=== PATIENT | male | born 1975 | race Two or more races ===

== ENCOUNTER 2023-02-25 10:33 | Inpatient (IN) | payer OTHER, SELFPAY ==
[2023-02-25] VITALS (9 sets, daily range): BP systolic 137–156; BP diastolic 78–96; PULSE 64–87; RESP 15–24; TEMP 36.3–36.4; O2SAT 94–97; BMI 27.4
--- NOTE | ~2023-02-25 | CT_ITS ---
EXAMINATION: CT ABDOMEN AND PELVIS WITH CONTRAST CLINICAL INFORMATION: Abdominal pain. COMPARISON: None available. TECHNIQUE: Multidetector volumetric images were obtained from the superior aspect of the liver through the pubic symphysis following administration 85 mL of Omnipaque 350 intravenous contrast. Sagittal and coronal reformatted images were obtained on the technologist's workstation. Oral contrast: No This CT examination was performed using dose optimization techniques as appropriate, variously including the following: *Automated exposure control *Adjustment of mA and/or kV according to patient size (this includes techniques or standardized protocols for targeted exams where dose is matched to indication/reason for exam; i.e. extremities or head) *Use of iterative reconstruction technique DLP: 468 mGy-cm FINDINGS: LUNG BASES: The visualized lung bases are unremarkable. LIVER, GALLBLADDER, AND BILIARY TREE: The liver is decreased in attenuation. No biliary ductal dilatation is present. The gallbladder is unremarkable with no evidence of radiopaque gallstones, gallbladder wall thickening, or obvious pericholecystic inflammatory changes. PANCREAS: Peripancreatic stranding. No focal fluid collection. No ductal dilatation. SPLEEN: Not enlarged. ADRENAL GLANDS: Unremarkable. KIDNEYS AND URETERS: The kidneys are normal in size, shape, and attenuation. No hydronephrosis, hydroureter, or calculi seen. No perinephric stranding. BLADDER: Unremarkable. GASTROINTESTINAL TRACT: The small and large bowel are unremarkable. The appendix is unremarkable. ABDOMINAL WALL: No significant hernia is appreciated. LYMPH NODES: No bulky lymphadenopathy. VASCULAR: Normal caliber abdominal aorta. PELVIC VISCERA: Unremarkable. OSSEOUS STRUCTURES: No destructive bone lesions. CT/CT abdomen pelvis w IV con IMPRESSION: Peripancreatic stranding. This most likely represents acute pancreatitis. Advise correlation with pancreatic enzymes. Hepatic steatosis.
--- NOTE | 2023-02-25 11:14 | ED_ITS ---
HPI - General Adult General Chief complaint: Abdominal Pain Stated complaint: Upper abd pain Time Seen by Provider: 02/25/23 14:17 Source: patient Mode of arrival: ambulatory Limitations: language barrier (Welsh speaking only, coffee host used) History of Present Illness HPI narrative: 47-year-old male who presents emergency department for evaluation of epigastric pain. Patient states the pain started yesterday around 15:00 hours was at work. Patient points to his epigastric area when asked to localize the pain, the pain is a constant, sharp pain which is 8/10 at its worst. This is 1st episode of this type of pain. Patient has had nausea and he states that he vomits a foul tasting yellow fluid several times specially when he is brushing his teeth. He did not take any pain medications but his did give him crushed of cartilage which did not relieve his pain. He denied fever, chills, cough, shortness of breath, dyspnea on exertion, diarrhea, bloody stools, black stools. He states he occasionally when he eats hot chili peppers he does get blood in his stool but this is not happened recently. Patient drinks 6-7 beers per day. NB: The patient's serum is severely lipemic and our lab is unable to process is CMP and lipase specimen was sent to [facility] for testing. Related Data Allergies Allergy/AdvReac Type Severity Reaction Status Date / Time No Known Allergies Allergy Verified 02/25/23 11:14 Review of Systems 2 Review of Systems: Yes all other systems are reviewed and are negative [facility] Past Medical History [facility] Narrative: Past medical history: None. Surgical history: None. Social history: Patient smokes cigarettes occasionally. He drinks 6-7 beers per day, he denies drug use. Social History Social History Alcohol intake: current Alcohol intake frequency: 3 or more drinks per day Alcohol type: beer Smoked in Last 30 Days: Yes Use of substances other than those prescribed or required for medical reasons: No Advance Directives: No Advance Directives Information Provided: Yes Physical Exam ED Vital Signs: Vital Signs - 24 hr 02/25/23 11:14 02/25/23 14:49 02/25/23 15:12 Temperature 97.4 F Pulse Rate 82 83 87 Respiratory Rate 18 18 16 Blood Pressure 137/86 147/94 H 152/96 H Pulse Oximetry 94 95 Oxygen Delivery Method Room Air Room Air Room Air 02/25/23 17:40 Temperature Pulse Rate 64 Respiratory Rate 15 Blood Pressure 147/88 H Pulse Oximetry 96 Oxygen Delivery Method Room Air BMI result Body Mass Index 27.4 Vital signs were normal Exam: General: Awake, alert in no distress Head: Normocephalic, atraumatic EENT: PERRL, Lids normal, sclera normal, conjunctiva normal, nose normal , ears normal, throat without erythema or exudates Neck: Supple, no adenopathy, no trachea midline or C-spine tenderness Lung: breath sounds symmetric, no wheezing, rales or rhonchi Chest: symmetric movement, nontender Heart: regular rate and rhythm, normal S1, S2 no murmurs or rubs Abdomen: soft, moderate epigastric tenderness, nondistended, normal bowel sounds Back: no vertebral tenderness, no CVAT Extremities: no deformities, moves all extremities symmetrically Neuro: Awake, alert, oriented, normal speech, moves all extremities symmetrically Psych: Pleasant, cooperative Course Course Course Narrative: RME performed by Vanita Rubalcava PA-C. Patient is a 47 year old assigned male at presenting to the emergency department with abdominal pain. Labs and swabs ordered. Patient placed back in the waiting room pending room availability and results. Medications Administered Discontinued Medications Generic Name Dose Route Start Last Admin Trade Name Freq PRN Reason Stop Dose Admin Famotidine 20 mg 02/25/23 14:45 02/25/23 14:56 Famotidine/Pf 20 Mg/2 Ml Vial IVPUSH 02/25/23 14:46 20 mg ONCE ONE Administration Sodium Chloride 1,000 mls @ 999 mls/hr 02/25/23 14:45 02/25/23 14:56 Ns IV 02/25/23 15:45 999 mls/hr .Q1H1M STA Administration Iohexol 100 ml 02/25/23 16:46 02/25/23 16:46 Iohexol 350 Mg/Ml 100 Ml Infus..Btl IV 02/25/23 16:47 85 ml ONCE ONE Administration Ketorolac Tromethamine 15 mg 02/25/23 14:45 02/25/23 14:56 Ketorolac Tromethamine 15 Mg/Ml Vial IVPUSH 02/25/23 14:46 15 mg ONCE STA Administration Ondansetron HCl 4 mg 02/25/23 14:45 02/25/23 14:56 Ondansetron Hcl 4 Mg/2 Ml Vial IVPUSH 02/25/23 14:46 4 mg ONCE ONE Administration Medical Decision Making Medical Decision Making [facility] Narrative: 47-year-old male who presents emergency department for evaluation of constant, sharp epigastric pain since 15:00 hours yesterday associated with nausea and vomiting. Patient's pain was 8/10, this is the patient's 1st episode. Patient does drink 6-7 beers per day. Patient's serum was lipemic and was not able to be tests at our lab-specimen was sent to [facility] for testing. Following evaluation was ordered: CBC, CMP, magnesium, urinalysis, lipase, lipid panel, CT scan abdomen pelvis with IV contrast. Patient was treated with Toradol 15 mg IV, Zofran 4 mg IV and Pepcid 20 mg IV. Patient was also given normal saline IV x1 L. 17:21 My interpretation patient's laboratory evaluation is as follows: CBC was normal except for low platelet count of a [id number]. Troponin was below detectable limits. The triglyceride was greater than 5680, chloride was greater than 1022, HDL was low at 19. The patient's CMP and lipase are pending CT scan of the abdomen pelvis with IV contrast is consistent acute pancreatitis most likely caused by the high triglycerides 17:40 I did discuss admission with the covering office manager receptionist, Dr. Tony who did accept the patient into the intensive care unit. At this time, we will hold off on the insulin drip until we can get the patient's comprehensive metabolic panel-in particular the patient's potassium from [facility]. Dr. Tony recommending giving the patient lactated Ringer's at 200 mL/hr and checking a VBG. Differential Diagnosis Differential Diagnoses: The differential diagnosis associated with the presentation includes Differential diagnosis includes but is not limited to gastritis, pancreatitis, biliary disease, peptic ulcer disease, electrolyte abnormality, anemia Admission/Observation Consideration of admission/observation: Escalation of care including admission/observation considered Lab Data [facility] Lab Attestation statement: I reviewed the patient's lab results. Please see discussion above 02/25/23 11:33 02/25/23 11:33 Labs: Lab Results 02/25/23 02/25/23 02/25/23 Range/Units 11:33 15:15 17:42 WBC 7.3 (4.8-10.8) X10*3/uL RBC 4.88 (4.60-5.80) X10*6/uL Hgb 14.9 (14.0-18.0) g/dl Hct 44.3 (42.0-52.0) % MCV 90.8 (80.0-98.0) fL MCH 30.5 (27.0-33.0) pg MCHC 33.6 (31.0-36.0) g/dl RDW 13.2 (11.0-16.0) % Plt Count 143 L (160-400) X10*3/uL MPV 10.4 (9.4-12.4) fL Immature Gran % (Auto) 0.5 H (0.0-0.4) % Neut % (Auto) 71.6 (45-73) % Lymph % (Auto) 19.7 L (20-40) % [place] % (Auto) 7.1 (2-11) % Eos % (Auto) 0.4 (0-4) % Baso % (Auto) 0.7 (0-2) % Lymph # (Auto) 1.4 (1.2-4.9) X10*3/uL [place] # (Auto) 0.5 (0.1-1.2) X10*3/uL Eos # (Auto) 0.0 (0.0-0.4) X10*3/uL Baso # (Auto) 0.1 (0.0-0.2) X10*3/uL Abs Immat Gran (auto) 0.04 H (0.00-0.03) X10*3/uL Absolute Neuts (auto) 5.2 (2.0-8.3) x10*3/uL Absolute Nucleated RBC 0.000 (0.0-0.012) X10*3/uL Nucleated RBC % (auto) 0.0 (0.0-0.2) /100WBC Smear Tech's Comments VERIFIED PT TNP INR TNP APTT TNP Troponin I High Sens < 2.7 (<3.5-35.0) ng/L Triglycerides > 5680 H Cancelled (<150) mg/dL Cholesterol 1022 H Cancelled (<200) mg/dL LDL Cholesterol, Calc TNP Cancelled HDL Cholesterol 19 L Cancelled (>40) mg/dL Urine Color Yellow Urine Appearance Clear Urine pH 7.0 (5.0-9.0) Ur Specific [place] >= 1.030 H (1.005-1.025) Urine Protein Negative (Neg-Trace) mg/dL Urine Glucose (UA) Negative (Negative) mg/dL Urine Ketones Negative (Negative) mg/dL Urine Blood Negative (Negative) Urine Nitrite Negative (Negative) Ur Leukocyte Esterase Negative (Negative) Independent Interpretation I performed an independent interpretation of an: EKG Interpretation: My independent interpretation patient's 12 EKG is as follows: Normal sinus rhythm with a rate of 75, normal [place], QRS and QTC interval, no ST segment elevation, no ST segment depression, no significant T-wave abnormalities, no PACs, no PVCs Radiology Impression Discussion of test interpretation with radiology: I have reviewed the radiologist's reading. Radiologist Impression: CT abdomen pelvis w IV con IMPRESSION: Peripancreatic stranding. This most likely represents acute pancreatitis. Advise correlation with pancreatic enzymes. Hepatic steatosis. Dictated By: Gifty Alaniz MD Chronic Conditions Patient?s care impacted by: Other (Alcohol use disorder) Critical Care Time Critical Care Time Critical Care Time: Yes Total Critical Care Time: 35 Attestation: Critical Care: The patient was critically ill with a high probability of imminent or life threatening deterioration. I spent greater than 30 minutes of discontinuous time evaluating the patient,delivering critical care at the bedside, discussing and evaluating pertinent data with consultants. Critical care time does not include time spent performing separately billable procedures or teaching. Total time spent performing critical care was 45 minutes. Discharge Plan Discharge Clinical Impression: Acute pancreatitis, Alcohol use disorder, Hyperlipidemia, Hypercholesterolemia
--- NOTE | 2023-02-25 11:16 | ECG_ITS ---
Test Reason : epigastric pain Blood Pressure : / mmHG Vent. Rate : 075 BPM Atrial Rate : 075 BPM P-R Int : 174 ms QRS Dur : 096 ms QT Int : 408 ms P-R-T Axes : 038 -45 007 degrees QTc Int : 455 ms Normal sinus rhythm Left anterior fascicular block Abnormal ECG No previous ECGs available Referred By: Vanita Rubalcava Electronically Signed By:DAMIAN VILLALTA MD
[2023-02-25 11:44] LABS: Basophils Absolute Auto 0.1 X10*3/uL (0.0-0.2); Basophils Percent Auto 0.7 % (0-2); Eosinophils Percent Auto 0.4 % (0-4); Hematocrit 44.3 % (42.0-52.0); Imm Gran Abs Auto 0.04 X10*3/uL (0.00-0.03); Imm Gran Pct Auto 0.5 % (0.0-0.4); Lymphocytes Absolute Auto 1.4 X10*3/uL (1.2-4.9); Lymphocytes Percent Auto 19.7 % (20-40); MANUAL DIFF FLAG SCAN; Mean Corpuscular Volume 90.8 fL (80.0-98.0); Mean Platelet Volume 10.4 fL (9.4-12.4); Monocytes Absolute Auto 0.5 X10*3/uL (0.1-1.2); Monocytes Percent Auto 7.1 % (2-11); Neutrophils Absolute Auto 5.2 x10*3/uL (2.0-8.3); Neutrophils Percent Auto 71.6 % (45-73); Platelet Count 143 X10*3/uL (160-400); Red Blood Count 4.88 X10*6/uL (4.60-5.80); Red Cell Distribution Width 13.2 % (11.0-16.0); SCAN SMEAR FLAG 1; White Blood Count 7.3 X10*3/uL (4.8-10.8)
[2023-02-25 11:51] LABS: Hemoglobin 14.9 g/dl (14.0-18.0)
[2023-02-25 11:52] LABS: Mean Corpuscular HGB Conc 33.6 g/dl (31.0-36.0); Mean Corpuscular Hemoglobin 30.5 pg (27.0-33.0)
[2023-02-25 12:08] LABS: Troponin-I High Sensitivity < 2.7 ng/L (<3.5-35.0)
[2023-02-25 12:25] LABS: SLIDE REVIEW VERIFIED
[2023-02-25] MEDS: 0.9 % Sodium Chloride 1,000 ML 999 ML IV (14:56)
[2023-02-25] MEDS: Famotidine/PF 20 MG/2 ML VIAL IVPUSH (14:56)
[2023-02-25] MEDS: Ketorolac Tromethamine 15 MG/ML VIAL IVPUSH (14:56)
[2023-02-25] MEDS: ondansetron HCL 4 MG/2 ML VIAL IVPUSH (14:56)
[2023-02-25 15:01] LABS: Cholesterol 1022 mg/dL (<200); Triglycerides > 5680 mg/dL (<150)
[2023-02-25 15:02] LABS: HDL Cholesterol 19 mg/dL (>40)
--- NOTE | 2023-02-25 15:13 | PC.NURSE ---
report taken from previous rn pt resting conformably in semi fowlers. pt is caox4 skin wpod, resps nonlabored. pt is in nsr in lead 2. pt just medicated for pain. Pt is awaiting bmp results for ct with contrast. abd noted to be soft and nontender with no discoloration or distention. will reeval pain and continue to monitor. call bailey withjin reach.
[2023-02-25] MEDS: iohexoL 350 MG/ML 100 ML INFUS..BTL IV (16:46)
[2023-02-25 17:50] LABS: Appearance Urine Clear; Color Urine Yellow; Glucose Urine UA Negative (Negative); Leukocyte Esterase Urine Negative (Negative); Nitrite Urine Negative (Negative); Specific Gravity - Urine >= 1.030 (1.005-1.025); Urine Blood Negative (Negative); Urine Ketones Negative (Negative); Urine Protein Negative (Neg-Trace)
--- NOTE | 2023-02-25 18:18 | PHA.MEDREC ---
Pharmacy Consult ? Medication Reconciliation Pharmacy has completed the medication reconciliation. Patient only takes otc medications. Marcia Hancock, GueritaD
[2023-02-25 18:26] LABS: VBG Base Excess 6.1 mmol/L; VBG HCO3 27 mmol/L (22-26); VBG pCO2 30 mmHg; VBG pH 7.56 (7.32-7.43); VBG pO2 52 mmHg
[2023-02-25 18:28] LABS: Venous Blood Gas Refer to POC result
[2023-02-25 18:57] LABS: Carbon Dioxide 18 mmol/L (22-29); Chloride 99 mmol/L (96-108); Potassium 3.7 mmol/L (3.3-5.1); Sodium 133 mmol/L (135-145)
[2023-02-25 18:58] LABS: Anion Gap 20 (12-20); Lipase 64 U/L (8-78)
[2023-02-25 19:21] LABS: Alanine Aminotransferase 117 U/L (0-40); Albumin Level 3.1 g/dL (3.5-5.0); Alkaline Phosphatase 169 U/L (39-117); Aspartate Amino Transferase 236 U/L (5-37); Bilirubin Total 1.3 mg/dL (0.0-1.0); Blood Urea Nitrogen 8 mg/dL (9-16); Calcium 8.2 mg/dL (8.4-10.2); Estimated Glomerular Filt Rate > 60; Glucose Random 94 mg/dL (60-115); Magnesium 1.7 mg/dL (1.6-2.6); Total Protein 8.7 g/dL (6.5-8.0)
[2023-02-25 20:08] LABS: Glucose, Whole Blood 100 mg/dL (60-115)
--- NOTE | 2023-02-25 20:12 | PC.NURSE ---
RN took report on this patient at change of shift; pt to be going to ICU [id number]. this RN and previous RN spoke to ICU nurse for rpt. pt labs had to be sent out to [facility]. per note from provider and per rpt from RN insulin was not to be hung until those lab results returned. pt is resting comfortable in stretcher. a/o x4. no apparent distress. denies any complaints at this time. resps are even and unlabored. normal sinus rhythm on the monitor. of note there were IT issues w/ this patient not showing up on the tracker, injection molding supervisor, registration, and meteorologist in charge all aware. these issues started at approx 1800.
--- NOTE | 2023-02-25 20:14 | PM.CCHP ---
History of Present Illness Date of Service: 02/25/23 Attending physician on admission: Coyr Tony Chief Complaint: Epigastric Patient is a 47-year-old Citizen Of [place]-speaking male with a past medical history of ETOH abuse ( admits to drinking 6-7 beers a day ) who presented to the emergency room duration with epigastric pain.? Patient reports x1 day of localize gastric pain, nausea? and vomiting ? yellow fluid?.? He denied fever, chills, cough, shortness of breath, dyspnea on exertion, diarrhea, bloody stools, black stools.? He states he occasionally when he eats hot chili peppers he does get blood in his stool but this is not happened recently. ? On arrival to the emergency room vital signs stable,? ? lab work was delay a required to be sent out to another facility for reading due to lipedemic blood.? By laboratory data was significant for? triglycerides greater than 5680,? cholesterol 1022.? CT of the abdomen? senior sales assistant with acute pancreatitis.? ?Patient being admitted to ICU ? for management of acute pancreatitis with hypertriglyceridemia? requiring insulin drip Review of Systems Review of Systems: as HPI all other symptoms reviewed and are negative [facility] Social History Social History Housing: House Alcohol intake: current Alcohol intake frequency: 3 or more drinks per day Alcohol type: beer Patient Tobacco Use Status: Current someday Tobacco user Tobacco use type: Cigarette Smoked in Last 30 Days: Yes Patient Interested in Nicotine Replacement: No Use of substances other than those prescribed or required for medical reasons: No Currently Displaying Signs/Symptoms of Drug Intoxication Withdrawal: No Advance Directives: No Advance Directives Information Provided: Yes Do you have thoughts of harming others: None Do you have a plan to hurt others: No Plan Recently lost weight without trying: No Nutrition Risks: No Nutritional Risk Poor oral hygiene: No Meds Allergies Allergy/AdvReac Type Severity Reaction Status Date / Time No Known Allergies Allergy Verified 02/25/23 11:14 Active Medications: Current Medications Fentanyl (Fentanyl Citrate/Pf 100 Mcg/2 Ml Vial) 25 mcg IVPUSH Q30M PRN; Protocol PRN Reason: Pain, Severe (Pain Scale 7-10) Heparin Sodium (Porcine) (Heparin Sodium,Porcine 5,000 Unit/Ml Vial) 5,000 unit SUBCUT TID YUAN Dextrose/Lactated Ringer's (D5lr) 1,000 mls @ 200 mls/hr IVCONT .Q5H YUAN Insulin Human Regular (Myxredlin) 100 unit in 100 mls @ 0 mls/hr IVCONT .Q0M YUAN; Protocol Potassium Chloride (Potassium Chloride/H20) 10 meq in 100 mls @ 100 mls/hr IV Q1H YUAN Stop: 02/26/23 00:14 Ondansetron HCl (Ondansetron Hcl 4 Mg/2 Ml Vial) 4 mg IVPUSH Q6H PRN PRN Reason: Nausea and Vomiting Home Medications Medication Instructions Recorded Confirmed Last Taken Type cyanocobalamin (vitamin B-12) 1,000 mcg PO DAILY 02/25/23 02/25/23 Unknown History 1,000 mcg tablet ibuprofen 200 mg tablet (Advil) 400 mg PO Q6H PRN Pain (Scale 02/25/23 02/25/23 Unknown History Score 1-3) vitamin A 3,000 mcg (10,000 unit) 3,000 mcg PO DAILY 02/25/23 02/25/23 Unknown History capsule Physical Exam Vital Signs: Vital Signs: Last Vital Signs Temp 97.6 F 02/25/23 20:00 Pulse 69 02/25/23 20:00 Resp 18 02/25/23 20:00 BP 150/94 H 02/25/23 20:00 Pulse Ox 95 02/25/23 20:00 O2 Del Method Room Air 02/25/23 20:00 BMI result Body Mass Index 27.4 ?General:? Alert oriented x3 no acute distress.? Speaking full sentences.? Following all commands. ?HEENT:? Head is normocephalic, atraumatic, pupils equal round reactive to light accommodation bilaterally.? Extraocular movements appear intact.? Buccal mucosa is dry, Neck is supple without lymphadenopathy. ?Cardiac:? Clear S1-S2, no murmurs rubs or gallops. ?Pulmonary:? Clear to auscultation, no wheezes, rales or rhonchi. ?Abdomen:? ?Abdomen soft, tender in epigastric region, non-distended. Normal bowel sounds. No pulsatile mass. No hepatosplenomegaly. ?Musculoskeletal:? Moving all 4 extremities upon request a major joints, there is no crepitus or tenderness.? The strength is 5/5 bilaterally and throughout all 4 extremities.? Gait not assessed at this point. ?Neurologic:? cranial nerves 2-12 are grossly intact.? No focal deficits noted.Motor strength as above.?? ?Skin:? Intact, no lesions, edema, erythema, clubbing or cyanosis.? No ulcers. Vascular:? 2+ pulses upper and lower extremities distally.? Results Labs 02/26/23 05:36 02/26/23 05:36 Labs: Laboratory Results - last 24 hr 02/25/23 02/25/23 02/25/23 11:33 15:15 17:42 MCV 90.8 MCH 30.5 MCHC 33.6 RDW 13.2 Plt Count 143 L MPV 10.4 Immature Gran % (Auto) 0.5 H Neut % (Auto) 71.6 Lymph % (Auto) 19.7 L [place] % (Auto) 7.1 Eos % (Auto) 0.4 Baso % (Auto) 0.7 Lymph # (Auto) 1.4 [place] # (Auto) 0.5 Eos # (Auto) 0.0 Baso # (Auto) 0.1 Abs Immat Gran (auto) 0.04 H Absolute Neuts (auto) 5.2 Absolute Nucleated RBC 0.000 Nucleated RBC % (auto) 0.0 Smear Tech's Comments VERIFIED PT TNP INR TNP APTT TNP VBG pH VBG pCO2 VBG pO2 VBG HCO3 VBG O2 Saturation VBG Base Excess Anion Gap 20 Estim Creat Clear Calc 123.0 Estimated GFR > 60 POC Glucose Random Glucose 94 Calcium 8.2 L Magnesium 1.7 Total Bilirubin 1.3 H AST 236 H ALT 117 H Alkaline Phosphatase 169 H Total Protein 8.7 H Albumin 3.1 L Triglycerides > 5680 H Cancelled Cholesterol 1022 H Cancelled LDL Cholesterol, Calc TNP Cancelled HDL Cholesterol 19 L Cancelled Lipase 64 Urine Color Yellow Urine Appearance Clear Urine pH 7.0 Ur Specific [place] >= 1.030 H Urine Protein Negative Urine Glucose (UA) Negative Urine Ketones Negative Urine Blood Negative Urine Nitrite Negative Ur Leukocyte Esterase Negative 02/25/23 02/25/23 18:21 20:04 MCV MCH MCHC RDW Plt Count MPV Immature Gran % (Auto) Neut % (Auto) Lymph % (Auto) [place] % (Auto) Eos % (Auto) Baso % (Auto) Lymph # (Auto) [place] # (Auto) Eos # (Auto) Baso # (Auto) Abs Immat Gran (auto) Absolute Neuts (auto) Absolute Nucleated RBC Nucleated RBC % (auto) Smear Tech's Comments PT INR APTT VBG pH 7.56 H VBG pCO2 30 VBG pO2 52 VBG HCO3 27 H VBG O2 Saturation 88.0 VBG Base Excess 6.1 Anion Gap Estim Creat Clear Calc Estimated GFR POC Glucose 100 Random Glucose Calcium Magnesium Total Bilirubin AST ALT Alkaline Phosphatase Total Protein Albumin Triglycerides Cholesterol LDL Cholesterol, Calc HDL Cholesterol Lipase Urine Color Urine Appearance Urine pH Ur Specific [place] Urine Protein Urine Glucose (UA) Urine Ketones Urine Blood Urine Nitrite Ur Leukocyte Esterase Imaging Radiologist's Impressions: Impressions Abdomen/Pelvis CT 02/25/23 16:50 IMPRESSION: Peripancreatic stranding. This most likely represents acute pancreatitis. Advise correlation with pancreatic enzymes. Hepatic steatosis. Assessment and Plan (1) Acute pancreatitis: Qualifiers: Pancreatitis type: other Status: Acute (2) Hypertriglyceridemia: Status: Acute (3) Leukocytosis: Status: Acute Plan 47-year-old male with a past history of EtOH abuse admitted to ICU for acute pancreatitis with hypertriglyceridemia Neuro: ? No acute issues Cardiac:? No acute issues Pulmonary: ? No acute issues Renal:?No acute issues? GI:?? pancreatitis with Hypertriglyceridemia:? CT is consistent with pancreatitis. Patient vitals are stable at this time. Abdomen soft, no distention.? Will continue insulin drip until triglycerides in safe range . endo:???No acute issues ID: Leukocytosis, from acute pancreatitis.? no evidence severe sepsis. Not infectious in nature.? Will continue to trend CBC Heme/Onc:? No acute issues. Psych:? No acute issues. Miscellaneous:? No acute issues. ? Prophylaxis:? Heparin subcut Diet: ? NPO?? Critical care time: 60 x minutes of critical care time.?? CODE STATUS: FULL Case reviewed with attending Dr. Tony
[2023-02-25] MEDS: Dextrose 5 % and Lactated Ring 1,000 ML 200 ML IVCONT (20:39)
[2023-02-25] MEDS: Insulin Regular/NS 100 UNIT/100 ML PLAST..BAG IVCONT (20:41)
[2023-02-25] MEDS: Potassium Chloride/H20 10 MEQ/100 ML PIGGYBACK 100 MEQ IV ×3 (20:41→22:47)
[2023-02-25] MEDS: Heparin Sodium,Porcine 5,000 UNIT/ML VIAL 5000 UNIT SUBCUT (20:41)
[2023-02-25 21:14] LABS: Glucose, Whole Blood 129 mg/dL (60-115)
[2023-02-25 22:03] LABS: Glucose, Whole Blood 110 mg/dL (60-115)
[2023-02-25 22:50] LABS: Glucose, Whole Blood 122 mg/dL (60-115)
[2023-02-25 23:52] LABS: Glucose, Whole Blood 163 mg/dL (60-115)
[2023-02-25] MEDS: Potassium Chloride/H20 10 MEQ/100 ML PIGGYBACK 50 MEQ IV (23:58)
[2023-02-26] VITALS (25 sets, daily range): BP systolic 118–138; BP diastolic 60–86; PULSE 70–96; RESP 12–29; TEMP 36.3–38.2; O2SAT 92–97; BMI 27.4
[2023-02-26 00:58] LABS: Glucose, Whole Blood 167 mg/dL (60-115)
[2023-02-26 01:20] LABS: Anion Gap 16 (12-20); Blood Urea Nitrogen 5 mg/dL (9-16); Carbon Dioxide 21 mmol/L (22-29); Chloride 99 mmol/L (96-108); Creatinine Clr Calc Pharmacy 113.4; Estimated Glomerular Filt Rate > 60; Glucose Random 151 mg/dL (60-115); Magnesium 1.5 mg/dL (1.6-2.6); Phosphorus 1.8 mg/dL (2.7-4.5); Potassium 3.3 mmol/L (3.3-5.1); Sodium 133 mmol/L (135-145)
[2023-02-26] MEDS: Magnesium Sulfate/H2O 2 GM/50 ML PIGGYBACK IV (01:55)
[2023-02-26 01:57] LABS: Glucose, Whole Blood 146 mg/dL (60-115)
[2023-02-26] MEDS: Dextrose 5 % and 0.45 % NaCl 1,000 ML 200 ML IVCONT ×2 (02:01→06:14)
[2023-02-26] MEDS: Potassium Phosphate/NS 15 MMOL/250 ML PLAST..BAG 62.5 MMOL IV ×2 (02:01→06:05)
[2023-02-26] MEDS: Ketorolac Tromethamine 15 MG/ML VIAL IVPUSH (02:12)
[2023-02-26 04:00] LABS: Glucose, Whole Blood 176 mg/dL (60-115)
[2023-02-26 05:57] LABS: VBG Base Excess 2.3 mmol/L; VBG HCO3 24 mmol/L (22-26); VBG pCO2 32 mmHg; VBG pH 7.48 (7.32-7.43); VBG pO2 48 mmHg
[2023-02-26] MEDS: fentaNYL citrate/PF 100 MCG/2 ML VIAL 25 MCG IVPUSH ×2 (06:09→19:43)
[2023-02-26 06:41] LABS: Alanine Aminotransferase 110 U/L (0-40); Albumin Level 2.9 g/dL (3.5-5.0); Alkaline Phosphatase 157 U/L (39-117); Anion Gap 16 (12-20); Aspartate Amino Transferase 147 U/L (5-37); Bilirubin Total 1.5 mg/dL (0.0-1.0); Blood Urea Nitrogen 3 mg/dL (9-16); Calcium 7.9 mg/dL (8.4-10.2); Carbon Dioxide 19 mmol/L (22-29); Chloride 98 mmol/L (96-108); Estimated Glomerular Filt Rate > 60; Glucose Random 190 mg/dL (60-115); Lipase 43 U/L (8-78); Phosphorus 2.9 mg/dL (2.7-4.5); Potassium 3.3 mmol/L (3.3-5.1); Sodium 130 mmol/L (135-145); Total Protein 7.1 g/dL (6.5-8.0)
[2023-02-26 06:55] LABS: Venous Blood Gas Refer to POC result
[2023-02-26 06:56] LABS: Basophils Percent Auto 0.4 % (0-2); Eosinophils Absolute Auto 0.1 X10*3/uL (0.0-0.4); Eosinophils Percent Auto 0.8 % (0-4); Hematocrit 43.2 % (42.0-52.0); Imm Gran Abs Auto 0.03 X10*3/uL (0.00-0.03); Imm Gran Pct Auto 0.4 % (0.0-0.4); Lymphocytes Absolute Auto 1.6 X10*3/uL (1.2-4.9); Lymphocytes Percent Auto 19.9 % (20-40); MANUAL DIFF FLAG SCAN; Mean Corpuscular Volume 90.6 fL (80.0-98.0); Mean Platelet Volume 11.4 fL (9.4-12.4); Monocytes Absolute Auto 0.6 X10*3/uL (0.1-1.2); Monocytes Percent Auto 7.4 % (2-11); Neutrophils Absolute Auto 5.6 x10*3/uL (2.0-8.3); Neutrophils Percent Auto 71.1 % (45-73); PLT CLUMP 1; Red Blood Count 4.77 X10*6/uL (4.60-5.80); Red Cell Distribution Width 13.2 % (11.0-16.0); SCAN SMEAR FLAG 1
--- NOTE | 2023-02-26 06:59 | PC.NURSE ---
Pt admitted to ICU from ED at approx 1999. Upon initial assessment- pt A&Ox4, calm,cooperative, DUMONT. Afebrile. NSR on tele, HR 80s. SBP WNL. Saturating well on room air. NPO- ok for ice chips per [employer] Dirk. Insulin gtt started and infusing per JUN. C/o abd pain and H/A, given toradol 15 mg IVP and PRN fentanyl 25 mcg IVP x1 with some effect. Voiding in urinal. No BM. Skin overall intact. Pt aware of plan of care. Call bailey in reach. Bed locked in low position.
[2023-02-26 07:27] LABS: Hemoglobin 14.5 g/dl (14.0-18.0); Mean Corpuscular HGB Conc 33.6 g/dl (31.0-36.0); Mean Corpuscular Hemoglobin 30.4 pg (27.0-33.0)
[2023-02-26 07:30] LABS: Platelet Count 116 X10*3/uL (160-400); White Blood Count 7.9 X10*3/uL (4.8-10.8)
[2023-02-26 07:31] LABS: SLIDE REVIEW VERIFIED
[2023-02-26] MEDS: Heparin Sodium,Porcine 5,000 UNIT/ML VIAL 5000 UNIT SUBCUT ×3 (07:51→20:25)
[2023-02-26 08:07] LABS: Glucose, Whole Blood 174 mg/dL (60-115)
--- NOTE | 2023-02-26 08:27 | P.CDIM_ITS ---
PROVIDER RESPONSE TEXT: To clarify, the appropriate diagnosis supported by the clinical indicators: Hypomagnesemia QUERY TEXT: PHYSICIAN'S DOCUMENTATION REQUEST Date of Query: 02/26/2023 08:20 AM EST Patient Name: Heladio Ying Admit Date: 02/25/2023 Dear Cory Tony, A review of the medical record indicates additional documentation may be needed. Please review below and update the documentation accordingly. Clinical Indicators: LAB FINDINGS: magnesium 1.5 L IV magnesium sulfate Is there a diagnosis that correlates with these lab findings: Hypomagnesemia Other Other (explain) Clinically unable to determine (explain) Thank you, Bia Harding, CCS, CDIS Use of terms such as suspected, likely, concern for, or probable (associated with a specific diagnosi s that is being evaluated, monitored, or treated as if it exists) are acceptable and can be coded in the inpatient se tting, when documented at the time of discharge. Please use your independent medical judgment in providing your response. THIS QUERY IS PART OF THE PERMANENT MEDICAL RECORD
[2023-02-26] MEDS: Potassium Chloride/H20 10 MEQ/100 ML PIGGYBACK 100 MEQ IV ×4 (09:26→14:35)
[2023-02-26 09:38] LABS: Triglycerides 4743 mg/dL (<150)
[2023-02-26 10:08] LABS: Glucose, Whole Blood 167 mg/dL (60-115)
--- NOTE | 2023-02-26 10:15 | MHC.CM.PN ---
Addendum entered by Clau Hayes 02/26/23 10:17: Pt declined HCP at this time: will call spouse to inquire on name of insurer Original Note: Met with pt to review d/c planning needs: pt resides w/spouse, has no DME or services and describes himself as independent. Pt states he has no local PCP and hasn't seen a provider in at least 7 years. He states he has an active insurance card but cannot recall the name. Pt w/working cellphone: will call spouse for transportation to home. Pt given a [facility] provider flyer and instructions to call for a PCP. CM to follow.
--- NOTE | 2023-02-26 10:17 | P.PNCC_ITS ---
Subjective Subjective Date of Service: 02/26/23 Interval History: 47-year-old with underlying alcohol abuse admitted on 02/25/2023 with epigastric pain secondary to acute pancreatitis and hypertriglyceridemia requiring insulin drip. CT abdomen/pelvis with no evidence of pancreatic necrosis. No events overnight. Triglycerides are improving. Critical Care Time (minutes): 0 Physical Exam 2 Vital Signs: Vital Signs: Last Vital Signs Temp 97.3 F 02/26/23 08:00 Pulse 77 02/26/23 10:00 Resp 21 H 02/26/23 10:00 BP 125/83 02/26/23 10:00 Pulse Ox 94 02/26/23 10:00 O2 Del Method Room Air 02/26/23 10:00 BMI result Body Mass Index 27.4 Const: General: no acute distress, alert and awake Eyes: Sclerae: sclerae normal EOM: EOMs intact bilaterally Neck: Neck: Yes no lymphadenopathy, Yes trachea midline and Yes supple Resp: Effort & Inspection: normal respiratory effort and no respiratory distress Auscultation: clear to auscultation bilaterally Cardio: Rate: regular rate Rhythm: regular rhythm Heart sounds: no gallops, no murmurs and no rubs GI: Palpation (GI): Soft to palpation and Tenderness to palpation present (GI) ( mild epigastric) Auscultation: normal bowel sounds Extrem: General: Yes no pedal edema, No clubbing and No cyanosis Objective Data Labs 02/26/23 05:36 02/26/23 05:36 Labs: Laboratory Results - last 24 hr 02/25/23 02/25/23 02/25/23 11:33 15:15 17:42 WBC 7.3 RBC 4.88 Hgb 14.9 Hct 44.3 MCV 90.8 MCH 30.5 MCHC 33.6 RDW 13.2 Plt Count 143 L MPV 10.4 Immature Gran % (Auto) 0.5 H Neut % (Auto) 71.6 Lymph % (Auto) 19.7 L [place] % (Auto) 7.1 Eos % (Auto) 0.4 Baso % (Auto) 0.7 Lymph # (Auto) 1.4 [place] # (Auto) 0.5 Eos # (Auto) 0.0 Baso # (Auto) 0.1 Abs Immat Gran (auto) 0.04 H Absolute Neuts (auto) 5.2 Absolute Nucleated RBC 0.000 Nucleated RBC % (auto) 0.0 Smear Tech's Comments VERIFIED PT TNP INR TNP APTT TNP VBG pH VBG pCO2 VBG pO2 VBG HCO3 VBG O2 Saturation VBG Base Excess Sodium 133 L Potassium 3.7 Chloride 99 Carbon Dioxide 18 L Anion Gap 20 BUN 8 L Creatinine 0.71 Estim Creat Clear Calc 123.0 Estimated GFR > 60 POC Glucose Random Glucose 94 Calcium 8.2 L Phosphorus Magnesium 1.7 Total Bilirubin 1.3 H AST 236 H ALT 117 H Alkaline Phosphatase 169 H Troponin I High Sens < 2.7 Total Protein 8.7 H Albumin 3.1 L Triglycerides > 5680 H Cancelled Cholesterol 1022 H Cancelled LDL Cholesterol, Calc TNP Cancelled HDL Cholesterol 19 L Cancelled Lipase 64 Urine Color Yellow Urine Appearance Clear Urine pH 7.0 Ur Specific [place] >= 1.030 H Urine Protein Negative Urine Glucose (UA) Negative Urine Ketones Negative Urine Blood Negative Urine Nitrite Negative Ur Leukocyte Esterase Negative 02/25/23 02/25/23 02/25/23 18:21 20:04 21:10 WBC RBC Hgb Hct MCV MCH MCHC RDW Plt Count MPV Immature Gran % (Auto) Neut % (Auto) Lymph % (Auto) [place] % (Auto) Eos % (Auto) Baso % (Auto) Lymph # (Auto) [place] # (Auto) Eos # (Auto) Baso # (Auto) Abs Immat Gran (auto) Absolute Neuts (auto) Absolute Nucleated RBC Nucleated RBC % (auto) Smear Tech's Comments PT INR APTT VBG pH 7.56 H VBG pCO2 30 VBG pO2 52 VBG HCO3 27 H VBG O2 Saturation 88.0 VBG Base Excess 6.1 Sodium Potassium Chloride Carbon Dioxide Anion Gap BUN Creatinine Estim Creat Clear Calc Estimated GFR POC Glucose 100 129 H Random Glucose Calcium Phosphorus Magnesium Total Bilirubin AST ALT Alkaline Phosphatase Troponin I High Sens Total Protein Albumin Triglycerides Cholesterol LDL Cholesterol, Calc HDL Cholesterol Lipase Urine Color Urine Appearance Urine pH Ur Specific [place] Urine Protein Urine Glucose (UA) Urine Ketones Urine Blood Urine Nitrite Ur Leukocyte Esterase 02/25/23 02/25/23 02/25/23 22:00 22:46 23:49 WBC RBC Hgb Hct MCV MCH MCHC RDW Plt Count MPV Immature Gran % (Auto) Neut % (Auto) Lymph % (Auto) [place] % (Auto) Eos % (Auto) Baso % (Auto) Lymph # (Auto) [place] # (Auto) Eos # (Auto) Baso # (Auto) Abs Immat Gran (auto) Absolute Neuts (auto) Absolute Nucleated RBC Nucleated RBC % (auto) Smear Tech's Comments PT INR APTT VBG pH VBG pCO2 VBG pO2 VBG HCO3 VBG O2 Saturation VBG Base Excess Sodium Potassium Chloride Carbon Dioxide Anion Gap BUN Creatinine Estim Creat Clear Calc Estimated GFR POC Glucose 110 122 H 163 H Random Glucose Calcium Phosphorus Magnesium Total Bilirubin AST ALT Alkaline Phosphatase Troponin I High Sens Total Protein Albumin Triglycerides Cholesterol LDL Cholesterol, Calc HDL Cholesterol Lipase Urine Color Urine Appearance Urine pH Ur Specific [place] Urine Protein Urine Glucose (UA) Urine Ketones Urine Blood Urine Nitrite Ur Leukocyte Esterase 02/26/23 02/26/23 02/26/23 00:25 00:53 01:54 WBC RBC Hgb Hct MCV MCH MCHC RDW Plt Count MPV Immature Gran % (Auto) Neut % (Auto) Lymph % (Auto) [place] % (Auto) Eos % (Auto) Baso % (Auto) Lymph # (Auto) [place] # (Auto) Eos # (Auto) Baso # (Auto) Abs Immat Gran (auto) Absolute Neuts (auto) Absolute Nucleated RBC Nucleated RBC % (auto) Smear Tech's Comments PT INR APTT VBG pH VBG pCO2 VBG pO2 VBG HCO3 VBG O2 Saturation VBG Base Excess Sodium 133 L Potassium 3.3 Chloride 99 Carbon Dioxide 21 L Anion Gap 16 BUN 5 L Creatinine 0.77 Estim Creat Clear Calc 113.4 Estimated GFR > 60 POC Glucose 167 H 146 H Random Glucose 151 H Calcium 8.0 L Phosphorus 1.8 L Magnesium 1.5 L Total Bilirubin AST ALT Alkaline Phosphatase Troponin I High Sens Total Protein Albumin Triglycerides Cholesterol LDL Cholesterol, Calc HDL Cholesterol Lipase Urine Color Urine Appearance Urine pH Ur Specific [place] Urine Protein Urine Glucose (UA) Urine Ketones Urine Blood Urine Nitrite Ur Leukocyte Esterase 02/26/23 02/26/23 02/26/23 03:56 05:36 05:51 WBC 7.9 RBC 4.77 Hgb 14.5 Hct 43.2 MCV 90.6 MCH 30.4 MCHC 33.6 RDW 13.2 Plt Count 116 L MPV 11.4 Immature Gran % (Auto) 0.4 Neut % (Auto) 71.1 Lymph % (Auto) 19.9 L [place] % (Auto) 7.4 Eos % (Auto) 0.8 Baso % (Auto) 0.4 Lymph # (Auto) 1.6 [place] # (Auto) 0.6 Eos # (Auto) 0.1 Baso # (Auto) 0.0 Abs Immat Gran (auto) 0.03 Absolute Neuts (auto) 5.6 Absolute Nucleated RBC 0.000 Nucleated RBC % (auto) 0.0 Smear Tech's Comments VERIFIED PT INR APTT VBG pH 7.48 H VBG pCO2 32 VBG pO2 48 VBG HCO3 24 VBG O2 Saturation 80.0 VBG Base Excess 2.3 Sodium 130 L Potassium 3.3 Chloride 98 Carbon Dioxide 19 L Anion Gap 16 BUN 3 L Creatinine 0.74 Estim Creat Clear Calc 118.0 Estimated GFR > 60 POC Glucose 176 H Random Glucose 190 H Calcium 7.9 L Phosphorus 2.9 Magnesium 2.0 Total Bilirubin 1.5 H AST 147 H ALT 110 H Alkaline Phosphatase 157 H Troponin I High Sens Total Protein 7.1 Albumin 2.9 L Triglycerides TNP Cholesterol LDL Cholesterol, Calc HDL Cholesterol Lipase 43 Urine Color Urine Appearance Urine pH Ur Specific [place] Urine Protein Urine Glucose (UA) Urine Ketones Urine Blood Urine Nitrite Ur Leukocyte Esterase 02/26/23 02/26/23 02/26/23 08:03 08:25 08:25 WBC RBC Hgb Hct MCV MCH MCHC RDW Plt Count MPV Immature Gran % (Auto) Neut % (Auto) Lymph % (Auto) [place] % (Auto) Eos % (Auto) Baso % (Auto) Lymph # (Auto) [place] # (Auto) Eos # (Auto) Baso # (Auto) Abs Immat Gran (auto) Absolute Neuts (auto) Absolute Nucleated RBC Nucleated RBC % (auto) Smear Tech's Comments PT INR APTT VBG pH VBG pCO2 VBG pO2 VBG HCO3 VBG O2 Saturation VBG Base Excess Sodium Potassium Chloride Carbon Dioxide Anion Gap BUN Creatinine Estim Creat Clear Calc Estimated GFR POC Glucose 174 H Random Glucose Calcium Phosphorus Magnesium Total Bilirubin AST ALT Alkaline Phosphatase Troponin I High Sens Total Protein Albumin Triglycerides 4743 H Cancelled Cholesterol LDL Cholesterol, Calc HDL Cholesterol Lipase Urine Color Urine Appearance Urine pH Ur Specific [place] Urine Protein Urine Glucose (UA) Urine Ketones Urine Blood Urine Nitrite Ur Leukocyte Esterase 02/26/23 10:05 WBC RBC Hgb Hct MCV MCH MCHC RDW Plt Count MPV Immature Gran % (Auto) Neut % (Auto) Lymph % (Auto) [place] % (Auto) Eos % (Auto) Baso % (Auto) Lymph # (Auto) [place] # (Auto) Eos # (Auto) Baso # (Auto) Abs Immat Gran (auto) Absolute Neuts (auto) Absolute Nucleated RBC Nucleated RBC % (auto) Smear Tech's Comments PT INR APTT VBG pH VBG pCO2 VBG pO2 VBG HCO3 VBG O2 Saturation VBG Base Excess Sodium Potassium Chloride Carbon Dioxide Anion Gap BUN Creatinine Estim Creat Clear Calc Estimated GFR POC Glucose 167 H Random Glucose Calcium Phosphorus Magnesium Total Bilirubin AST ALT Alkaline Phosphatase Troponin I High Sens Total Protein Albumin Triglycerides Cholesterol LDL Cholesterol, Calc HDL Cholesterol Lipase Urine Color Urine Appearance Urine pH Ur Specific [place] Urine Protein Urine Glucose (UA) Urine Ketones Urine Blood Urine Nitrite Ur Leukocyte Esterase Progress Note: A&P Assessment and plan (1) Hypertriglyceridemia: Status: Acute (2) Acute pancreatitis: Status: Acute Plan Assessment: 47-year-old gentleman admitted with acute pancreatitis secondary to use and hypertriglyceridemia now requiring insulin drip. Plan: Neuro: No acute issues. Cardiac: No acute issues. Pulmonary: No acute issues. Renal: No acute issues. Endo: No acute issues. GI: Acute pancreatitis secondary to alcohol abuse and hypertriglyceridemia. No evidence of necrosis on initial CT abdomen. Continue insulin drip until triglycerides under 1000. ID: No acute issues Heme/Onc: No acute issues. Psych: No acute issues. Miscellaneous: No acute issues. Prophylaxis: Heparin Diet: NPO Quality Stroke Does the patient have a stroke diagnosis?: No VTE Prior VTE?: No VTE Risk Level:: Medical - moderate - high VTE Device Contraindication: Treatment Not Indicated VTE Drug Contraindication: N/A - Med Ordered
--- NOTE | 2023-02-26 10:18 | P.CDIM_ITS ---
PROVIDER RESPONSE TEXT: To clarify, the appropriate diagnosis supported by the clinical indicators: Hyponatremia QUERY TEXT: PHYSICIAN'S DOCUMENTATION REQUEST Date of Query: 02/26/2023 09:19 AM EST Patient Name: Heladio Ying Admit Date: 02/25/2023 Dear Cory Tony, A review of the medical record indicates additional documentation may be needed. Please review below and update the documentation accordingly. Clinical Indicators: LAB FINDINGS: sodium 133 130 L fluids Is there a diagnosis that correlates with these lab findings: Hyponatremia Labs indicate a diagnosis of (please specify) Other (explain) Clinically unable to determine (explain) Thank you, Bia Harding, CCS, CDIS Use of terms such as suspected, likely, concern for, or probable (associated with a specific diagnosi s that is being evaluated, monitored, or treated as if it exists) are acceptable and can be coded in the inpatient se tting, when documented at the time of discharge. Please use your independent medical judgment in providing your response. THIS QUERY IS PART OF THE PERMANENT MEDICAL RECORD
[2023-02-26] MEDS: Dextrose 5 % and Lactated Ring 1,000 ML 200 ML IVCONT ×3 (11:14→20:24)
[2023-02-26 12:11] LABS: Glucose, Whole Blood 188 mg/dL (60-115)
[2023-02-26] MEDS: Magnesium Hydrox/Alum Hydrox 30 ML ORAL.SUSP PO (12:11)
[2023-02-26 14:20] LABS: Glucose, Whole Blood 201 mg/dL (60-115)
[2023-02-26 16:03] LABS: Glucose, Whole Blood 189 mg/dL (60-115)
[2023-02-26 18:21] LABS: Glucose, Whole Blood 156 mg/dL (60-115)
[2023-02-26 20:24] LABS: Glucose, Whole Blood 149 mg/dL (60-115)
[2023-02-26 22:10] LABS: Glucose, Whole Blood 157 mg/dL (60-115)
[2023-02-27] VITALS (17 sets, daily range): BP systolic 106–138; BP diastolic 59–85; PULSE 76–99; RESP 18–27; TEMP 36.3–37.4; O2SAT 89–97; BMI 25.7
[2023-02-27] LABS: Glucose, Whole Blood 137 mg/dL (60-115)
[2023-02-27] MEDS: fentaNYL citrate/PF 100 MCG/2 ML VIAL 25 MCG IVPUSH ×3 (00:34→07:44)
[2023-02-27] MEDS: Dextrose 5 % and Lactated Ring 1,000 ML 200 ML IVCONT ×2 (01:10→04:02)
[2023-02-27 02:04] LABS: Glucose, Whole Blood 176 mg/dL (60-115)
[2023-02-27 03:58] LABS: Glucose, Whole Blood 165 mg/dL (60-115)
[2023-02-27 04:38] LABS: VBG Base Excess 6.9 mmol/L; VBG HCO3 29 mmol/L (22-26); VBG pCO2 35 mmHg; VBG pH 7.53 (7.32-7.43); VBG pO2 67 mmHg
[2023-02-27 04:47] LABS: MANUAL DIFF FLAG NO
[2023-02-27 04:59] LABS: Basophils Absolute Auto 0.1 X10*3/uL (0.0-0.2); Basophils Percent Auto 0.6 % (0-2); Eosinophils Absolute Auto 0.2 X10*3/uL (0.0-0.4); Eosinophils Percent Auto 1.5 % (0-4); Hemoglobin 15.1 g/dl (14.0-18.0); Imm Gran Abs Auto 0.08 X10*3/uL (0.00-0.03); Imm Gran Pct Auto 0.8 % (0.0-0.4); Lymphocytes Absolute Auto 2.1 X10*3/uL (1.2-4.9); Lymphocytes Percent Auto 21.3 % (20-40); Mean Corpuscular Hemoglobin 32.2 pg (27.0-33.0); Mean Corpuscular Volume 89.6 fL (80.0-98.0); Mean Platelet Volume 11.7 fL (9.4-12.4); Monocytes Absolute Auto 0.7 X10*3/uL (0.1-1.2); Monocytes Percent Auto 6.9 % (2-11); Neutrophils Absolute Auto 6.8 x10*3/uL (2.0-8.3); Neutrophils Percent Auto 68.9 % (45-73); Platelet Count 109 X10*3/uL (160-400); Red Blood Count 4.69 X10*6/uL (4.60-5.80); Red Cell Distribution Width 13.2 % (11.0-16.0); White Blood Count 9.8 X10*3/uL (4.8-10.8)
[2023-02-27 05:11] LABS: Alanine Aminotransferase 96 U/L (0-40); Albumin Level 2.8 g/dL (3.5-5.0); Alkaline Phosphatase 135 U/L (39-117); Anion Gap 13 (12-20); Aspartate Amino Transferase 113 U/L (5-37); Bilirubin Total 1.2 mg/dL (0.0-1.0); Blood Urea Nitrogen < 3 mg/dL (9-16); Calcium 8.4 mg/dL (8.4-10.2); Carbon Dioxide 24 mmol/L (22-29); Chloride 102 mmol/L (96-108); Creatinine Clr Calc Pharmacy 116.8; Estimated Glomerular Filt Rate > 60; Glucose Random 137 mg/dL (60-115); Lipase 30 U/L (8-78); Magnesium 1.9 mg/dL (1.6-2.6); Phosphorus 2.5 mg/dL (2.7-4.5); Potassium 3.4 mmol/L (3.3-5.1); Sodium 136 mmol/L (135-145); Total Protein 6.8 g/dL (6.5-8.0); Triglycerides 668 mg/dL (<150)
[2023-02-27] MEDS: Albumin Human 25 % 100 ML IV ×4 (05:33→23:42)
[2023-02-27] MEDS: Potassium Phosphate/NS 15 MMOL/250 ML PLAST..BAG 62.5 MMOL IV (05:34)
[2023-02-27 05:59] LABS: Glucose, Whole Blood 117 mg/dL (60-115)
[2023-02-27 06:43] LABS: Venous Blood Gas Refer to POC result
[2023-02-27 08:06] LABS: Glucose, Whole Blood 114 mg/dL (60-115)
[2023-02-27] MEDS: gemfibroziL 600 MG TABLET PO ×2 (09:09→15:37)
[2023-02-27] MEDS: Heparin Sodium,Porcine 5,000 UNIT/ML VIAL 5000 UNIT SUBCUT ×3 (09:09→21:51)
--- NOTE | 2023-02-27 09:09 | P.CDIM_ITS ---
PROVIDER RESPONSE TEXT: To clarify, the appropriate diagnosis supported by the clinical indicators: Hypophosphatemia, resolved QUERY TEXT: PHYSICIAN'S DOCUMENTATION REQUEST Date of Query: 02/27/2023 08:30 AM EST Patient Name: Heladio Ying Admit Date: 02/25/2023 Dear Cory Tony, A review of the medical record indicates additional documentation may be needed. Please review below and update the documentation accordingly. Clinical Indicators: LAB FINDINGS: phosphorus 1.8 L Is there a diagnosis that correlates with these lab findings: Hypophosphatemia, resolved Labs indicate a diagnosis of (please specify) Other (explain) Clinically unable to determine (explain) Thank you, Bia Harding, CCS, CDIS Use of terms such as suspected, likely, concern for, or probable (associated with a specific diagnosi s that is being evaluated, monitored, or treated as if it exists) are acceptable and can be coded in the inpatient se tting, when documented at the time of discharge. Please use your independent medical judgment in providing your response. THIS QUERY IS PART OF THE PERMANENT MEDICAL RECORD
--- NOTE | 2023-02-27 09:36 | PM.CCPN ---
Subjective Subjective Date of Service: 02/27/23 Interval History: 47-year-old with underlying alcohol abuse admitted on 02/25/2023 with epigastric pain secondary to acute pancreatitis and hypertriglyceridemia requiring insulin drip. CT abdomen/pelvis with no evidence of pancreatic necrosis. No events overnight. Triglycerides improved under 1000. Insulin drip discontinued. Critical Care Time (minutes): 0 Physical Exam Vital Signs: Vital Signs: Last Vital Signs Temp 97.5 F 02/27/23 08:00 Pulse 89 02/27/23 09:00 Resp 22 H 02/27/23 09:00 BP 114/69 02/27/23 09:00 Pulse Ox 95 02/27/23 09:00 O2 Del Method Room Air 02/27/23 09:00 BMI result Body Mass Index 25.7 Const: General: no acute distress, alert and awake Eyes: Sclerae: sclerae normal EOM: EOMs intact bilaterally Neck: Neck: Yes no lymphadenopathy, Yes trachea midline and Yes supple Resp: Effort & Inspection: normal respiratory effort and no respiratory distress Auscultation: clear to auscultation bilaterally Cardio: Rate: regular rate Rhythm: regular rhythm Heart sounds: no gallops, no murmurs and no rubs GI: Palpation (GI): Soft to palpation and Other GI palpation findings present ( Nontender) Auscultation: normal bowel sounds Extrem: General: Yes no pedal edema, No clubbing and No cyanosis Objective Data Labs 02/27/23 04:29 02/27/23 04:29 Labs: Laboratory Results - last 24 hr 02/26/23 02/26/23 02/26/23 08:25 10:05 11:58 WBC RBC Hgb Hct MCV MCH MCHC RDW Plt Count MPV Immature Gran % (Auto) Neut % (Auto) Lymph % (Auto) [place] % (Auto) Eos % (Auto) Baso % (Auto) Lymph # (Auto) [place] # (Auto) Eos # (Auto) Baso # (Auto) Abs Immat Gran (auto) Absolute Neuts (auto) Absolute Nucleated RBC Nucleated RBC % (auto) VBG pH VBG pCO2 VBG pO2 VBG HCO3 VBG O2 Saturation VBG Base Excess Sodium Potassium Chloride Carbon Dioxide Anion Gap BUN Creatinine Estim Creat Clear Calc Estimated GFR POC Glucose 167 H 188 H Random Glucose Calcium Phosphorus Magnesium Total Bilirubin AST ALT Alkaline Phosphatase Total Protein Albumin Triglycerides 4743 H Lipase 02/26/23 02/26/23 02/26/23 14:17 15:55 18:18 WBC RBC Hgb Hct MCV MCH MCHC RDW Plt Count MPV Immature Gran % (Auto) Neut % (Auto) Lymph % (Auto) [place] % (Auto) Eos % (Auto) Baso % (Auto) Lymph # (Auto) [place] # (Auto) Eos # (Auto) Baso # (Auto) Abs Immat Gran (auto) Absolute Neuts (auto) Absolute Nucleated RBC Nucleated RBC % (auto) VBG pH VBG pCO2 VBG pO2 VBG HCO3 VBG O2 Saturation VBG Base Excess Sodium Potassium Chloride Carbon Dioxide Anion Gap BUN Creatinine Estim Creat Clear Calc Estimated GFR POC Glucose 201 H 189 H 156 H Random Glucose Calcium Phosphorus Magnesium Total Bilirubin AST ALT Alkaline Phosphatase Total Protein Albumin Triglycerides Lipase 02/26/23 02/26/23 02/26/23 20:17 22:07 23:57 WBC RBC Hgb Hct MCV MCH MCHC RDW Plt Count MPV Immature Gran % (Auto) Neut % (Auto) Lymph % (Auto) [place] % (Auto) Eos % (Auto) Baso % (Auto) Lymph # (Auto) [place] # (Auto) Eos # (Auto) Baso # (Auto) Abs Immat Gran (auto) Absolute Neuts (auto) Absolute Nucleated RBC Nucleated RBC % (auto) VBG pH VBG pCO2 VBG pO2 VBG HCO3 VBG O2 Saturation VBG Base Excess Sodium Potassium Chloride Carbon Dioxide Anion Gap BUN Creatinine Estim Creat Clear Calc Estimated GFR POC Glucose 149 H 157 H 137 H Random Glucose Calcium Phosphorus Magnesium Total Bilirubin AST ALT Alkaline Phosphatase Total Protein Albumin Triglycerides Lipase 02/27/23 02/27/23 02/27/23 02:00 03:54 04:29 WBC 9.8 RBC 4.69 Hgb 15.1 Hct 42.0 MCV 89.6 MCH 32.2 MCHC 36.0 RDW 13.2 Plt Count 109 L MPV 11.7 Immature Gran % (Auto) 0.8 H Neut % (Auto) 68.9 Lymph % (Auto) 21.3 [place] % (Auto) 6.9 Eos % (Auto) 1.5 Baso % (Auto) 0.6 Lymph # (Auto) 2.1 [place] # (Auto) 0.7 Eos # (Auto) 0.2 Baso # (Auto) 0.1 Abs Immat Gran (auto) 0.08 H Absolute Neuts (auto) 6.8 Absolute Nucleated RBC 0.000 Nucleated RBC % (auto) 0.0 VBG pH VBG pCO2 VBG pO2 VBG HCO3 VBG O2 Saturation VBG Base Excess Sodium 136 Potassium 3.4 Chloride 102 Carbon Dioxide 24 Anion Gap 13 BUN < 3 L Creatinine 0.69 Estim Creat Clear Calc 116.8 Estimated GFR > 60 POC Glucose 176 H 165 H Random Glucose 137 H Calcium 8.4 D Phosphorus 2.5 L Magnesium 1.9 Total Bilirubin 1.2 H AST 113 H ALT 96 H Alkaline Phosphatase 135 H Total Protein 6.8 Albumin 2.8 L Triglycerides 668 H Lipase 30 02/27/23 02/27/23 02/27/23 04:32 05:56 08:02 WBC RBC Hgb Hct MCV MCH MCHC RDW Plt Count MPV Immature Gran % (Auto) Neut % (Auto) Lymph % (Auto) [place] % (Auto) Eos % (Auto) Baso % (Auto) Lymph # (Auto) [place] # (Auto) Eos # (Auto) Baso # (Auto) Abs Immat Gran (auto) Absolute Neuts (auto) Absolute Nucleated RBC Nucleated RBC % (auto) VBG pH 7.53 H VBG pCO2 35 VBG pO2 67 VBG HCO3 29 H VBG O2 Saturation 95.0 VBG Base Excess 6.9 Sodium Potassium Chloride Carbon Dioxide Anion Gap BUN Creatinine Estim Creat Clear Calc Estimated GFR POC Glucose 117 H 114 Random Glucose Calcium Phosphorus Magnesium Total Bilirubin AST ALT Alkaline Phosphatase Total Protein Albumin Triglycerides Lipase Progress Note: A&P Assessment and plan (1) Hypertriglyceridemia: Status: Acute (2) Acute pancreatitis: Status: Acute (3) Alcohol use disorder: Status: Acute Plan Assessment: 47-year-old gentleman admitted with acute pancreatitis secondary to use and hypertriglyceridemia now requiring insulin drip. Plan: Neuro: No acute issues. Cardiac: No acute issues. Pulmonary: No acute issues. Renal: No acute issues. Endo: No acute issues. GI: Acute pancreatitis secondary to alcohol abuse and hypertriglyceridemia. No evidence of necrosis on initial CT abdomen. Triglycerides under 1000. Insulin drip stop. Started on gemfibrozil. ID: No acute issues Heme/Onc: No acute issues. Psych: No acute issues. Miscellaneous: No acute issues. Prophylaxis: Heparin Diet: full liquid Quality Stroke Does the patient have a stroke diagnosis?: No VTE Prior VTE?: No VTE Risk Level:: Medical - moderate - high VTE Device Contraindication: Treatment Not Indicated VTE Drug Contraindication: N/A - Med Ordered
--- NOTE | 2023-02-27 13:56 | MHC.CM.PN ---
PT MOVED TO MEDICAL FLOOR FROM ICU. TRIGLYCERIDES HAVE IMPROVED. CM WILL CONTINUE TO MONITOR FOR ANY CHANGE IN DC NEEDS/PLAN.
--- NOTE | 2023-02-27 15:09 | PM.EVENT ---
Event Note Date of Service: 02/27/23 Event Note: Day hospitalist update S: abd pain resolved This history was taken in Serbian from the patient. O: Temp Pulse Resp BP Pulse Ox O2 Del Method 98.7 F 88 18 127/59 L 96 Room Air 02/27/23 13:00 02/27/23 13:00 02/27/23 13:00 02/27/23 13:00 02/27/23 13:00 02/27/23 13:00 Gen: in no acute distress HEENT: sclera anicteric, moist mucus membranes Neck: supple Lungs: clear to auscultation bilaterally Heart: regular rate and rhythm, no murmurs Abd: soft, non-tender, non-distended Ext: no edema Skin: warm/well-perfused Neuro: alert and oriented x3, no focal findings Psych: appropriate affect A/P: d3 47yo FM with AUD + hyperTG admitted with acute pancreatitis requiring insulin drip acute pancreatitis due to hyperTG - s/p insulin drip, continue gemfibrozil - avoid ETOH AUD - no signs of withdrawal - Addiction Medicine consultation VTE ppx - LMWH dispo - eventual home In my clinical judgment, the patient requires continued inpatient hospitalization for the following reasons: ICU downgrade Time Spent With Patient Time: Total time managing care of this patient today ____ minutes.
[2023-02-27] MEDS: Acetaminophen 325 MG TABLET 650 MG PO (19:43)
[2023-02-28] VITALS: BP 138/79; PULSE 72; RESP 18; TEMP 36.1; O2SAT 96
[2023-02-28 03:30] VITALS: BP 126/70; PULSE 65; RESP 18; TEMP 36.2; O2SAT 96
[2023-02-28] MEDS: Acetaminophen 325 MG TABLET 650 MG PO (05:58)
[2023-02-28 06:02] LABS: MANUAL DIFF FLAG NO
[2023-02-28 06:22] LABS: Basophils Percent Auto 0.6 % (0-2); Eosinophils Absolute Auto 0.2 X10*3/uL (0.0-0.4); Eosinophils Percent Auto 3.9 % (0-4); Imm Gran Abs Auto 0.03 X10*3/uL (0.00-0.03); Imm Gran Pct Auto 0.5 % (0.0-0.4); Lymphocytes Absolute Auto 1.7 X10*3/uL (1.2-4.9); Lymphocytes Percent Auto 26.7 % (20-40); Mean Corpuscular HGB Conc 34.9 g/dl (31.0-36.0); Mean Corpuscular Hemoglobin 32.6 pg (27.0-33.0); Mean Corpuscular Volume 93.5 fL (80.0-98.0); Mean Platelet Volume 11.3 fL (9.4-12.4); Monocytes Absolute Auto 0.6 X10*3/uL (0.1-1.2); Monocytes Percent Auto 9.5 % (2-11); Neutrophils Absolute Auto 3.7 x10*3/uL (2.0-8.3); Neutrophils Percent Auto 58.8 % (45-73); Platelet Count 128 X10*3/uL (160-400); Red Cell Distribution Width 14.2 % (11.0-16.0); White Blood Count 6.2 X10*3/uL (4.8-10.8)
[2023-02-28 06:27] LABS: Alanine Aminotransferase 80 U/L (0-40); Albumin Level 4.4 g/dL (3.5-5.0); Alkaline Phosphatase 127 U/L (39-117); Anion Gap 15 (12-20); Aspartate Amino Transferase 113 U/L (5-37); Bilirubin Total 1.9 mg/dL (0.0-1.0); Blood Urea Nitrogen 4 mg/dL (9-16); Calcium 9.8 mg/dL (8.4-10.2); Carbon Dioxide 24 mmol/L (22-29); Chloride 103 mmol/L (96-108); Creatinine Clr Calc Pharmacy 113.5; Estimated Glomerular Filt Rate > 60; Glucose Random 98 mg/dL (60-115); Magnesium 2.2 mg/dL (1.6-2.6); Phosphorus 3.1 mg/dL (2.7-4.5); Potassium 3.7 mmol/L (3.3-5.1); Sodium 138 mmol/L (135-145); Total Protein 7.8 g/dL (6.5-8.0); Triglycerides 433 mg/dL (<150)
[2023-02-28 07:35] VITALS: BP 109/53; PULSE 65; RESP 18; TEMP 36.1; O2SAT 96
[2023-02-28 08:38] LABS: Estimated Average Glucose 117 mg/dL; Hemoglobin A1c % 5.7 % (<6.0)
[2023-02-28 08:42] LABS: HBc Num1 0.07 S/CO (0.00-0.79); HBsAGNum1 0.48 S/CO (0.00-0.99); HIV AB/AG Nonreactive (Nonreactive); HIV Num 1 0.06 S/CO (0.00-0.99); Hepatitis B Core Antibody Nonreactive (Nonreactive); Hepatitis B Surface Antigen Negative (Negative); ~HepC Num1 0.15 S/CO (0.00-0.79); ~Hepatitis B Surface Antibody NONREACTIVE (Nonreactive); ~Hepatitis C Antibody Nonreactive (Nonreactive)
[2023-02-28] MEDS: gemfibroziL 600 MG TABLET PO (09:10)
--- NOTE | 2023-02-28 09:58 | PM.DS ---
DS: Providers Provider Date of Service: 02/28/23 Date of admission: 02/25/23 18:00 Primary care physician: None Physician Consults: 02/27/23 15:11 Addiction Medicine Routine Consulting Provider: Addiction Covering Reason for consultation: aud DS: Diagnosis Discharge Diagnosis (1) Hypertriglyceridemia: Status: Acute (2) Acute pancreatitis: Status: Acute (3) Alcohol use disorder: Status: Acute DS: Summary Hospital Course Hospital Course: From the history and physical by the admitting puff iron operator GAVIN Cavazos, 02/25/23: Patient is a 47-year-old Arabic-speaking male with a past medical history of ETOH abuse ( admits to drinking 6-7 beers a day ) who presented to the emergency room duration with epigastric pain.? Patient reports x1 day of localize gastric pain, nausea? and vomiting ? yellow fluid?.? He denied fever, chills, cough, shortness of breath, dyspnea on exertion, diarrhea, bloody stools, black stools.? He states he occasionally when he eats hot chili peppers he does get blood in his stool but this is not happened recently. ? On arrival to the emergency room vital signs stable,? ? lab work was delay a required to be sent out to another facility for reading due to lipedemic blood.? By laboratory data was significant for? triglycerides greater than 5680,? cholesterol 1022.? CT of the abdomen? assistant project engineer with acute pancreatitis.? ?Patient being admitted to ICU ? for management of acute pancreatitis with hypertriglyceridemia? requiring insulin drip This 47yo M with AUD + hyperTG admitted with acute pancreatitis requiring insulin drip. Once triglycerides were <500, insulin drip was discontinued and he was downgraded to the medical-surgical floor. Diet was advanced and pain resolved completely. He was counseled to avoid alcohol completely. He was seen by Addiction Medicine and prescribed naltrexone; he will follow up with [facility] on Sunday 03/11 at 0900.No signs or symptoms of withdrawal syndrome. He was started on gemfibrozil. A1c was borderline prediabetic at 5.7. He was advised to establish primary care as soon as possible and to follow a low-fat, low-sugar diet. Time Attestation Discharge coordination time: Greater than 30 minutes Quality: Safe Use of Opioids Does Pt have an Active Cancer Diagnosis on the Problem List?: No Quality: Stroke Does the patient have a stroke diagnosis?: No Physical Exam Vital Signs: Vital Signs: Last Vital Signs Temp 97.0 F 02/28/23 07:35 Pulse 65 02/28/23 07:35 Resp 18 02/28/23 07:35 BP 109/53 L 02/28/23 07:35 Pulse Ox 96 02/28/23 07:35 O2 Del Method Room Air 02/28/23 07:35 BMI result Body Mass Index 25.7 Gen: in no acute distress HEENT: sclera anicteric, moist mucus membranes Neck: supple Lungs: clear to auscultation bilaterally Heart: regular rate and rhythm, no murmurs Abd: soft, non-tender, non-distended Ext: no edema Skin: warm/well-perfused Neuro: alert and oriented x3, no focal findings Psych: appropriate affect DS: Data Data Completed and Pending Completed studies during hospitalization [Text1]: Laboratory Results WBC 6.2 X10*3/uL (4.8-10.8) 02/28/23 05:52 RBC 4.60 X10*6/uL (4.60-5.80) 02/28/23 05:52 Hgb 15.0 g/dl (14.0-18.0) 02/28/23 05:52 Hct 43.0 % (42.0-52.0) 02/28/23 05:52 MCV 93.5 fL (80.0-98.0) 02/28/23 05:52 MCH 32.6 pg (27.0-33.0) 02/28/23 05:52 MCHC 34.9 g/dl (31.0-36.0) 02/28/23 05:52 RDW 14.2 % (11.0-16.0) 02/28/23 05:52 Plt Count 128 X10*3/uL (160-400) L 02/28/23 05:52 MPV 11.3 fL (9.4-12.4) 02/28/23 05:52 Immature Gran % (Auto) 0.5 % (0.0-0.4) H 02/28/23 05:52 Neut % (Auto) 58.8 % (45-73) 02/28/23 05:52 Lymph % (Auto) 26.7 % (20-40) 02/28/23 05:52 [place] % (Auto) 9.5 % (2-11) 02/28/23 05:52 Eos % (Auto) 3.9 % (0-4) 02/28/23 05:52 Baso % (Auto) 0.6 % (0-2) 02/28/23 05:52 Lymph # (Auto) 1.7 X10*3/uL (1.2-4.9) 02/28/23 05:52 [place] # (Auto) 0.6 X10*3/uL (0.1-1.2) 02/28/23 05:52 Eos # (Auto) 0.2 X10*3/uL (0.0-0.4) 02/28/23 05:52 Baso # (Auto) 0.0 X10*3/uL (0.0-0.2) 02/28/23 05:52 Abs Immat Gran (auto) 0.03 X10*3/uL (0.00-0.03) 02/28/23 05:52 Absolute Neuts (auto) 3.7 x10*3/uL (2.0-8.3) 02/28/23 05:52 Absolute Nucleated RBC 0.000 X10*3/uL (0.0-0.012) 02/28/23 05:52 Nucleated RBC % (auto) 0.0 /100WBC (0.0-0.2) 02/28/23 05:52 Smear Tech's Comments VERIFIED 02/26/23 05:36 PT TNP 02/25/23 11:33 INR TNP 02/25/23 11:33 APTT TNP 02/25/23 11:33 VBG pH 7.53 (7.32-7.43) H 02/27/23 04:32 VBG pCO2 35 mmHg 02/27/23 04:32 VBG pO2 67 mmHg 02/27/23 04:32 VBG HCO3 29 mmol/L (22-26) H 02/27/23 04:32 VBG O2 Saturation 95.0 % 02/27/23 04:32 VBG Base Excess 6.9 mmol/L 02/27/23 04:32 Sodium 138 mmol/L (135-145) 02/28/23 05:52 Potassium 3.7 mmol/L (3.3-5.1) 02/28/23 05:52 Chloride 103 mmol/L (96-108) 02/28/23 05:52 Carbon Dioxide 24 mmol/L (22-29) 02/28/23 05:52 Anion Gap 15 (12-20) 02/28/23 05:52 BUN 4 mg/dL (9-16) L 02/28/23 05:52 Creatinine 0.71 mg/dL (0.5-1.4) 02/28/23 05:52 Estim Creat Clear Calc 113.5 02/28/23 05:52 Estimated GFR > 60 02/28/23 05:52 POC Glucose 114 mg/dL (60-115) 02/27/23 08:02 Random Glucose 98 mg/dL (60-115) 02/28/23 05:52 Estimat Average Glucose 117 mg/dL 02/28/23 05:52 Hemoglobin A1c % 5.7 % (<6.0) 02/28/23 05:52 Calcium 9.8 mg/dL (8.4-10.2) D 02/28/23 05:52 Phosphorus 3.1 mg/dL (2.7-4.5) 02/28/23 05:52 Magnesium 2.2 mg/dL (1.6-2.6) 02/28/23 05:52 Total Bilirubin 1.9 mg/dL (0.0-1.0) H 02/28/23 05:52 AST 113 U/L (5-37) H 02/28/23 05:52 ALT 80 U/L (0-40) H 02/28/23 05:52 Alkaline Phosphatase 127 U/L (39-117) H 02/28/23 05:52 Troponin I High Sens < 2.7 ng/L (<3.5-35.0) 02/25/23 11:33 Total Protein 7.8 g/dL (6.5-8.0) 02/28/23 05:52 Albumin 4.4 g/dL (3.5-5.0) 02/28/23 05:52 Triglycerides 433 mg/dL (<150) H 02/28/23 05:52 Cholesterol Cancelled 02/25/23 15:15 LDL Cholesterol, Calc Cancelled 02/25/23 15:15 HDL Cholesterol Cancelled 02/25/23 15:15 Lipase 30 U/L (8-78) 02/27/23 04:29 Urine Color Yellow 02/25/23 17:42 Urine Appearance Clear 02/25/23 17:42 Urine pH 7.0 (5.0-9.0) 02/25/23 17:42 Ur Specific [place] >= 1.030 (1.005-1.025) H 02/25/23 17:42 Urine Protein Negative mg/dL (Neg-Trace) 02/25/23 17:42 Urine Glucose (UA) Negative mg/dL (Negative) 02/25/23 17:42 Urine Ketones Negative mg/dL (Negative) 02/25/23 17:42 Urine Blood Negative (Negative) 02/25/23 17:42 Urine Nitrite Negative (Negative) 02/25/23 17:42 Ur Leukocyte Esterase Negative (Negative) 02/25/23 17:42 Hep Bs Antigen Negative (Negative) 02/28/23 05:52 Hep Bs Antibody NONREACTIVE (Nonreactive) 02/28/23 05:52 Hep B Core Total Ab Nonreactive (Nonreactive) 02/28/23 05:52 Hepatitis C Ab (EIA) Nonreactive (Nonreactive) 02/28/23 05:52 HIV 1&2 Ab/P24 Ag 4thGn Nonreactive (Nonreactive) 02/28/23 05:52 Impressions Abdomen/Pelvis CT 02/25/23 16:50 IMPRESSION: Peripancreatic stranding. This most likely represents acute pancreatitis. Advise correlation with pancreatic enzymes. Hepatic steatosis. Discharge Plan Discharge Anticipated Discharge Date/Time: 02/28/23 13:54 Patient Disposition: Home, Self-Care Discharge Diagnosis: acute pancreatitis hypertriglyceridemia alcohol use disorder possible prediabetes Referrals: Isaac Dasilva [Provider Group] - 1 Week Physician,Deon [Primary Care Provider] - 1 Week Terri Gutierrez CNP [Nurse Practitioner] - 1 Week (Sunday 03/11 at 0900.) Discharge Medications: New gemfibrozil 600 mg Tablet 600 mg PO BIDAC Qty: 60 0RF naltrexone 50 mg tablet 50 mg PO DAILY Qty: 30 0RF Rx Instructions: take half tab daily for 3 days then increase to one tab daily Continued cyanocobalamin (vitamin B-12) 1,000 mcg Tablet 1,000 mcg PO DAILY vitamin A 3,000 mcg (10,000 unit) Capsule 3,000 mcg PO DAILY ibuprofen [Advil] 200 mg Tablet 400 mg PO Q6H PRN (Reason: Pain (Scale Score 1-3)) Discharge Orders: Discharge Order (Routine); Ordered 02/28/23 Ordered By: Todd Webber Diet: Low fat, low cholesterol Activity on Discharge: As tolerated Stand Alone Forms: Patient Portal Discharge page, Work/School Release Care Plan Goals: prevention of pancreatitis Health Concerns: acute pancreatitis hypertriglyceridemia alcohol use disorder possible prediabetes Plan of Treatment: low-fat diet; avoid sugar as well take gemfibrozil 600 mg twice daily take naltrexone 50 mg once daily; see Terri Gutierrez at [facility] on Sunday 03/11 at 0900. avoid alcohol completely establish primary care as soon as possible Assessment: See Discharge Summary.
[2023-02-28 12:00] VITALS: BP 123/78; PULSE 81; RESP 18; TEMP 36; O2SAT 98
--- NOTE | 2023-02-28 12:39 | HO.ADDICTCON ---
History of Present Illness Date of Service: 02/28/2023 Chief Complaint: Acute pancreatitis Reason for Consult: AUD Sources of Information: patient interviewed and chart reviewed HPI Narrative: Patient is a 47 year old Arabic speaking male medically admitted with acute pancreatitis and alcohol withdrawal. Seen by this designer writer in room 344, he was awake, alert, pleasant and engaged in interview. He reports he has been drinking almost daily for over 15-20 years, however within the last 2 years amount he drinks daily has increased significantly. He identifies significant social stressors as inital trigger for increase in drinking. Denies any history of treatment. Denies any history of seizures. Family history of AUD, including his twin brother. Denies any other substance use. Lives with and works FT at a [employer]. Patient reporting feeling very scared about my health since his admission. Acknowledges that he wants to stop drinking but does not know how to. This designer writer provided options for medications, as he does not with to go to treatment that requires admission. Provided wiritten materials as well. Review of Systems Constitutional: Reports as per HPI and Reports no additional constitutional complaints Diagnostics Vital Signs (24Hr): Vital Signs - 24 hr 02/27/23 13:00 02/27/23 15:44 02/27/23 19:42 Temperature 98.7 F 97.3 F 97.5 F Pulse Rate 88 76 92 Respiratory Rate 18 18 18 Blood Pressure 127/59 L 138/85 128/82 Pulse Oximetry 96 96 94 Oxygen Delivery Method Room Air Room Air Room Air 02/28/23 00:00 02/28/23 03:30 02/28/23 07:35 Temperature 97 F 97.1 F 97.0 F Pulse Rate 72 65 65 Respiratory Rate 18 18 18 Blood Pressure 138/79 126/70 109/53 L Pulse Oximetry 96 96 96 Oxygen Delivery Method Room Air Room Air Room Air 02/28/23 12:00 Temperature 96.8 F Pulse Rate 81 Respiratory Rate 18 Blood Pressure 123/78 Pulse Oximetry 98 Oxygen Delivery Method Room Air BMI result Body Mass Index 25.7 Labs 02/28/23 05:52 02/28/23 05:52 Labs: Laboratory Results - last 48 hr 02/26/23 02/26/23 02/26/23 14:17 15:55 18:18 WBC RBC Hgb Hct MCV MCH MCHC RDW Plt Count MPV Immature Gran % (Auto) Neut % (Auto) Lymph % (Auto) [place] % (Auto) Eos % (Auto) Baso % (Auto) Lymph # (Auto) [place] # (Auto) Eos # (Auto) Baso # (Auto) Abs Immat Gran (auto) Absolute Neuts (auto) Absolute Nucleated RBC Nucleated RBC % (auto) VBG pH VBG pCO2 VBG pO2 VBG HCO3 VBG O2 Saturation VBG Base Excess Sodium Potassium Chloride Carbon Dioxide Anion Gap BUN Creatinine Estim Creat Clear Calc Estimated GFR POC Glucose 201 H 189 H 156 H Random Glucose Estimat Average Glucose Hemoglobin A1c % Calcium Phosphorus Magnesium Total Bilirubin AST ALT Alkaline Phosphatase Total Protein Albumin Triglycerides Lipase Hep Bs Antigen Hep Bs Antibody Hep B Core Total Ab Hepatitis C Ab (EIA) HIV 1&2 Ab/P24 Ag 4thGn 02/26/23 02/26/23 02/26/23 20:17 22:07 23:57 WBC RBC Hgb Hct MCV MCH MCHC RDW Plt Count MPV Immature Gran % (Auto) Neut % (Auto) Lymph % (Auto) [place] % (Auto) Eos % (Auto) Baso % (Auto) Lymph # (Auto) [place] # (Auto) Eos # (Auto) Baso # (Auto) Abs Immat Gran (auto) Absolute Neuts (auto) Absolute Nucleated RBC Nucleated RBC % (auto) VBG pH VBG pCO2 VBG pO2 VBG HCO3 VBG O2 Saturation VBG Base Excess Sodium Potassium Chloride Carbon Dioxide Anion Gap BUN Creatinine Estim Creat Clear Calc Estimated GFR POC Glucose 149 H 157 H 137 H Random Glucose Estimat Average Glucose Hemoglobin A1c % Calcium Phosphorus Magnesium Total Bilirubin AST ALT Alkaline Phosphatase Total Protein Albumin Triglycerides Lipase Hep Bs Antigen Hep Bs Antibody Hep B Core Total Ab Hepatitis C Ab (EIA) HIV 1&2 Ab/P24 Ag 4thGn 02/27/23 02/27/23 02/27/23 02:00 03:54 04:29 WBC 9.8 RBC 4.69 Hgb 15.1 Hct 42.0 MCV 89.6 MCH 32.2 MCHC 36.0 RDW 13.2 Plt Count 109 L MPV 11.7 Immature Gran % (Auto) 0.8 H Neut % (Auto) 68.9 Lymph % (Auto) 21.3 [place] % (Auto) 6.9 Eos % (Auto) 1.5 Baso % (Auto) 0.6 Lymph # (Auto) 2.1 [place] # (Auto) 0.7 Eos # (Auto) 0.2 Baso # (Auto) 0.1 Abs Immat Gran (auto) 0.08 H Absolute Neuts (auto) 6.8 Absolute Nucleated RBC 0.000 Nucleated RBC % (auto) 0.0 VBG pH VBG pCO2 VBG pO2 VBG HCO3 VBG O2 Saturation VBG Base Excess Sodium 136 Potassium 3.4 Chloride 102 Carbon Dioxide 24 Anion Gap 13 BUN < 3 L Creatinine 0.69 Estim Creat Clear Calc 116.8 Estimated GFR > 60 POC Glucose 176 H 165 H Random Glucose 137 H Estimat Average Glucose Hemoglobin A1c % Calcium 8.4 D Phosphorus 2.5 L Magnesium 1.9 Total Bilirubin 1.2 H AST 113 H ALT 96 H Alkaline Phosphatase 135 H Total Protein 6.8 Albumin 2.8 L Triglycerides 668 H Lipase 30 Hep Bs Antigen Hep Bs Antibody Hep B Core Total Ab Hepatitis C Ab (EIA) HIV 1&2 Ab/P24 Ag 4thGn 02/27/23 02/27/23 02/27/23 04:32 05:56 08:02 WBC RBC Hgb Hct MCV MCH MCHC RDW Plt Count MPV Immature Gran % (Auto) Neut % (Auto) Lymph % (Auto) [place] % (Auto) Eos % (Auto) Baso % (Auto) Lymph # (Auto) [place] # (Auto) Eos # (Auto) Baso # (Auto) Abs Immat Gran (auto) Absolute Neuts (auto) Absolute Nucleated RBC Nucleated RBC % (auto) VBG pH 7.53 H VBG pCO2 35 VBG pO2 67 VBG HCO3 29 H VBG O2 Saturation 95.0 VBG Base Excess 6.9 Sodium Potassium Chloride Carbon Dioxide Anion Gap BUN Creatinine Estim Creat Clear Calc Estimated GFR POC Glucose 117 H 114 Random Glucose Estimat Average Glucose Hemoglobin A1c % Calcium Phosphorus Magnesium Total Bilirubin AST ALT Alkaline Phosphatase Total Protein Albumin Triglycerides Lipase Hep Bs Antigen Hep Bs Antibody Hep B Core Total Ab Hepatitis C Ab (EIA) HIV 1&2 Ab/P24 Ag 4thGn 02/28/23 05:52 WBC 6.2 RBC 4.60 Hgb 15.0 Hct 43.0 MCV 93.5 MCH 32.6 MCHC 34.9 RDW 14.2 Plt Count 128 L MPV 11.3 Immature Gran % (Auto) 0.5 H Neut % (Auto) 58.8 Lymph % (Auto) 26.7 [place] % (Auto) 9.5 Eos % (Auto) 3.9 Baso % (Auto) 0.6 Lymph # (Auto) 1.7 [place] # (Auto) 0.6 Eos # (Auto) 0.2 Baso # (Auto) 0.0 Abs Immat Gran (auto) 0.03 Absolute Neuts (auto) 3.7 Absolute Nucleated RBC 0.000 Nucleated RBC % (auto) 0.0 VBG pH VBG pCO2 VBG pO2 VBG HCO3 VBG O2 Saturation VBG Base Excess Sodium 138 Potassium 3.7 Chloride 103 Carbon Dioxide 24 Anion Gap 15 BUN 4 L Creatinine 0.71 Estim Creat Clear Calc 113.5 Estimated GFR > 60 POC Glucose Random Glucose 98 Estimat Average Glucose 117 Hemoglobin A1c % 5.7 Calcium 9.8 D Phosphorus 3.1 Magnesium 2.2 Total Bilirubin 1.9 H AST 113 H ALT 80 H Alkaline Phosphatase 127 H Total Protein 7.8 Albumin 4.4 Triglycerides 433 H Lipase Hep Bs Antigen Negative Hep Bs Antibody NONREACTIVE Hep B Core Total Ab Nonreactive Hepatitis C Ab (EIA) Nonreactive HIV 1&2 Ab/P24 Ag 4thGn Nonreactive Imaging Radiology Impressions: ITS Impressions Abdomen/Pelvis CT 02/25/23 16:50 IMPRESSION: Peripancreatic stranding. This most likely represents acute pancreatitis. Advise correlation with pancreatic enzymes. Hepatic steatosis. Mental Status Exam Mental Status Exam Patient Appearance: Well Grooomed and Appropriate Level of Consciousness: Awake and Appropriate Medications Medications Current Medications Acetaminophen (Acetaminophen 325 Mg Tablet) 650 mg PO Q6H PRN PRN Reason: Pain, Mild (Pain Scale 1-3) Last Admin: 02/28/23 05:58 Dose: 650 mg Fentanyl (Fentanyl Citrate/Pf 100 Mcg/2 Ml Vial) 25 mcg IVPUSH Q2H PRN; Protocol PRN Reason: Pain, Severe (Pain Scale 7-10) Last Admin: 02/27/23 07:44 Dose: 25 mcg Gemfibrozil (Gemfibrozil 600 Mg Tablet) 600 mg PO BIDAC [facility] Last Admin: 02/28/23 09:10 Dose: 600 mg Heparin Sodium (Porcine) (Heparin Sodium,Porcine 5,000 Unit/Ml Vial) 5,000 unit SUBCUT TID [facility] Last Admin: 02/28/23 09:10 Dose: Not Given Ondansetron HCl (Ondansetron Hcl 4 Mg/2 Ml Vial) 4 mg IVPUSH Q6H PRN PRN Reason: Nausea and Vomiting Allergies Allergies Allergy/AdvReac Type Severity Reaction Status Date / Time No Known Allergies Allergy Verified 02/25/23 11:14 Assessment & Plan Assessment & Plan (1) Alcohol use disorder: Status: Acute Code(s): F10.90 - Alcohol use, unspecified, uncomplicated Assessment and Plan: naltrexone 50mg QD. Sent to patients pharmacy. Medication dosing, side effects, and goals of treatment. appt scheduled with [facility] Total time managing care of this patient today __40__ minutes. PMFSH Social History Social History Housing: House Alcohol intake: current Alcohol intake frequency: 3 or more drinks per day Alcohol type: beer Patient Tobacco Use Status: Current someday Tobacco user Tobacco use type: Cigarette service: No
--- NOTE | 2023-02-28 12:44 | MHC.CM.PN ---
DP: PT HAS BEEN MEDICALLY CLEARED FOR DC HOME, NO SERVICES. SPOUSE WILL TRANSPORT
== END 2023-02-28 13:40 | disposition home or self-care (01) | DRG 439 ==
LOC: HO.ED 19:58 → HO.ICU 20:03 → HO.S3 02-27 11:36
PROVIDERS: Physician Assistant Medical; Admitting Provider Internal Medicine Pulmonary Disease; Emergency Provider Emergency Medicine Emergency Medical Services; Visit Provider Family Medicine
DX: K85.20 Alcohol induced acute pancreatitis without necrosis or infection (principal); E87.1 Hypo-osmolality and hyponatremia; F17.210 Nicotine dependence, cigarettes, uncomplicated; E78.2 Mixed hyperlipidemia; R73.03 Prediabetes; F10.10 Alcohol abuse, uncomplicated; E83.42 Hypomagnesemia; E83.39 Other disorders of phosphorus metabolism; Z71.6 Tobacco abuse counseling; Z79.899 Other long term (current) drug therapy
CPT/HCPCS: 36415; 74177; 80048; 80053; 80061; 81003; 82803; 82947; 83036; 83690; 83735; 84100; 84478; 84484; 85025; 85610; 85730; 86704; 86706; 86803; 87340; 87389; 93005; 99285; J1644; J1885; J2405; J3010; J3475; J3480; P9047; Q9967

== ENCOUNTER → 2023-02-25 18:00 | Outpatient (BNV) | payer OTHER, SELFPAY | PROVIDERS: Admitting Provider Internal Medicine Pulmonary Disease; Emergency Provider Emergency Medicine Emergency Medical Services; Visit Provider Family Medicine | DX: E78.1 Pure hyperglyceridemia (principal); K85.90 Acute pancreatitis without necrosis or infection, unspecified; F10.90 Alcohol use, unspecified, uncomplicated | CPT/HCPCS: 99239; 99499 ==

== ENCOUNTER → 2023-02-25 18:00 | Outpatient (BNV) | payer OTHER, SELFPAY | PROVIDERS: Admitting Provider Internal Medicine Pulmonary Disease; Emergency Provider Emergency Medicine Emergency Medical Services; Visit Provider Registered Nurse Community Health | DX: K85.90 Acute pancreatitis without necrosis or infection, unspecified (principal); E78.1 Pure hyperglyceridemia; D72.829 Elevated white blood cell count, unspecified | CPT/HCPCS: 99291 ==

== ENCOUNTER → 2023-02-25 18:00 | Outpatient (BNV) | payer OTHER, SELFPAY | PROVIDERS: Admitting Provider Internal Medicine Pulmonary Disease; Emergency Provider Emergency Medicine Emergency Medical Services; Visit Provider Nurse Practitioner Psychiatric/Mental Health | DX: F10.90 Alcohol use, unspecified, uncomplicated (principal) | CPT/HCPCS: 99232 ==

== ENCOUNTER → 2023-02-25 18:00 | Outpatient (BNV) | payer OTHER, SELFPAY | PROVIDERS: Admitting Provider Internal Medicine Pulmonary Disease; Emergency Provider Emergency Medicine Emergency Medical Services; Visit Provider Internal Medicine Pulmonary Disease | DX: K85.90 Acute pancreatitis without necrosis or infection, unspecified (principal); E78.1 Pure hyperglyceridemia | CPT/HCPCS: 99232 ==

== ENCOUNTER 2023-03-11 09:15 | Outpatient (AMB) | payer OTHER, SELFPAY ==
--- NOTE | 2023-03-11 09:17 | A.OFFVIS_ITS ---
Intake Vital Signs 03/11/23 09:20 BP 126/78 Blood Pressure Location Lt radial Position Sitting Pulse 72 Pulse Source Pulse Oximeter Pulse Oximetry (%) 6 L Oxygen Delivery Method Room Air Intake Visit Reasons: mat intake Intake Note: the patient presents for a mat intake Correctional Counselor Required: No Allergies No Known Allergies Allergy (Verified 03/11/23 09:23) HPI mat intake HPI Details Patient presents for intake and follow up of AUD Seen by this loan underwriter while medically admitted --substance use history obtained during that visit Started on Naltrexone --tolerated medication Denies any nausea or vomiting. Reports feeling much better than before. More energy and mind feels clearer. Discussed labs and and significance, provided patient with hand out on dietary choices for high triglycerides. No alcohol since prior to admission Discussed cravings and how to manage PCP in [place] --new patient appt coming up soon [facility] Social History Housing: House Alcohol intake: current Alcohol intake frequency: 3 or more drinks per day Alcohol type: beer Patient Tobacco Use Status: Current someday Tobacco user Tobacco use type: Cigarette service: No Review of Systems Const Reports as per HPI and Reports no additional complaints Physical Exam Vital Signs: Last Vital Signs Pulse 72 03/11/23 09:20 BP 126/78 03/11/23 09:20 Pulse Ox 6 L 03/11/23 09:20 Oxygen Delivery Method Room Air 03/11/23 09:20 Const General: cooperative, healthy appearing and no acute distress Nutritional Appearance: well nourished Orientation/consciousness: patient oriented x3 Limitations: no limitations Skin General skin exam: no rashes or lesions noted Neuro General: patient oriented x3 Psych Appearance: well kempt Speech and movement: Normal speech and movement present Affect: normal affect Attitude: cooperative Thought process: Normal thought process present Thought content: Normal thought content present Insight: Good insight present (Psych) Judgement: Good judgement present (Psych) Assessment & Plan Assessment & Plan (1) Alcohol use disorder: Code(s): F10.90 - Alcohol use, unspecified, uncomplicated Plan: * continue naltrexone at current dose * follow up 3 weeks * relapse prevention discussion Coding Level of Care Code Est Pt Level 3 (68654) Diagnoses Alcohol use disorder F10.90
[2023-03-11 09:20] VITALS: BP 126/78; PULSE 72; O2SAT 6
== END 2023-03-11 10:14 | disposition home or self-care (01) ==
PROVIDERS: Visit Provider Nurse Practitioner Psychiatric/Mental Health
DX: F10.90 Alcohol use, unspecified, uncomplicated (principal)
CPT/HCPCS: 99213

== ENCOUNTER → 2023-03-11 09:15 | Outpatient (BNVA) | payer OTHER, SELFPAY | PROVIDERS: Visit Provider Nurse Practitioner Psychiatric/Mental Health ==

== ENCOUNTER 2023-04-16 09:14 | Outpatient (AMB) | payer OTHER, SELFPAY ==
--- NOTE | 2023-04-16 11:36 | MHC.AM.SUB ---
Intake Vital Signs 04/16/23 12:01 BP 120/70 Blood Pressure Location Rt brachial Position Sitting Respiration 18 Pulse 76 Pulse Source Pulse Oximeter Pulse Oximetry (%) 96 Oxygen Delivery Method Room Air Intake Visit Reasons: MAT Visit/Yenifer Inj Allergies No Known Allergies Allergy (Verified 03/11/23 09:23) HPI MAT Visit/Yenifer Inj HPI Details Patient presents for AUD treatment follow up and first vivitrol injection Reporting no alcohol use until when he had 5 or 6 beers He denies any thoughts of drinking aside from then He is planning to visit his family in 2 weeks and was concerned about drinking there. Reviewed strategies for avoiding as well as responses for when people are persistently asking him to have a drink. Discussed injection, goals of medication, side effects and frequency of medication administration. PFS Social History Housing: House Alcohol intake: current Alcohol intake frequency: 3 or more drinks per day Alcohol type: beer Patient Tobacco Use Status: Current someday Tobacco user Tobacco use type: Cigarette service: No Review of Systems Const Reports as per HPI and Reports no additional complaints Physical Exam Vital Signs: Last Vital Signs Pulse 76 04/16/23 12:01 Resp 18 04/16/23 12:01 BP 120/70 04/16/23 12:01 Pulse Ox 96 04/16/23 12:01 Oxygen Delivery Method Room Air 04/16/23 12:01 Const General: cooperative, healthy appearing and no acute distress Nutritional Appearance: well nourished Orientation/consciousness: patient oriented x3 Limitations: no limitations Skin General skin exam: no rashes or lesions noted Neuro General: patient oriented x3 Psych Appearance: well kempt Speech and movement: Normal speech and movement present Affect: normal affect Attitude: cooperative Thought process: Normal thought process present Thought content: Normal thought content present Insight: Good insight present (Psych) Judgement: Good judgement present (Psych) Office Meds Vivitrol 380 mg intramuscular suspension,extended release Performing Provider: Terri Gutierrez CNP Performing Location: [facility] Administered by: Suzanne Bess on 04/16/23 09:45 Dose Route Admin Location Dispensed Lot Number Expiration Date [employer] Retail Salesworker 380 mg IM RG 380 mg [id number] 07/13/25 [id number] GT Urological Comments: Pt tolerated injection well. Educated on signs/symptoms of infection and encouraged to call the [facility] with questions or concerns. Assessment & Plan Assessment & Plan (1) Alcohol use disorder: Code(s): F10.90 - Alcohol use, unspecified, uncomplicated Plan: tolerated injection follow up 4 weeks Orders: Orders AMB Naltrexone Injection Patient Supplied 04/16/23 F10.90 - Alcohol use, unspecified, uncomplicated Coding Level of Care Code Est Pt Level 3 (32600) Diagnoses Alcohol use disorder F10.90
[2023-04-16 12:01] VITALS: BP 120/70; PULSE 76; RESP 18; O2SAT 96
== END 2023-04-16 09:58 | disposition home or self-care (01) ==
PROVIDERS: Visit Provider Nurse Practitioner Psychiatric/Mental Health
DX: F10.90 Alcohol use, unspecified, uncomplicated (principal)
CPT/HCPCS: 99213

== ENCOUNTER → 2023-04-16 09:14 | Outpatient (BNVA) | payer OTHER, SELFPAY | PROVIDERS: Visit Provider Nurse Practitioner Psychiatric/Mental Health | DX: F10.20 Alcohol dependence, uncomplicated (principal) | CPT/HCPCS: 96372; J2315 ==

== ENCOUNTER 2023-05-23 13:53 | Outpatient (AMB) | payer OTHER, SELFPAY ==
--- NOTE | 2023-05-23 14:00 | AM.OFFVISNUR ---
Intake Vital Signs 05/23/23 14:04 BP 140/90 H Blood Pressure Location Lt radial Position Sitting Pulse 69 Pulse Source Pulse Oximeter Pulse Oximetry (%) 97 Oxygen Delivery Method Room Air Intake Visit Reasons: Yenifer Inj Intake Note: the patient presents for a mat visit Sewing Trimmer Required: No Allergies No Known Allergies Allergy (Verified 05/23/23 14:05) Do you need a note to return to daycare/school/sports/work: No Nursing Note Patient present for 4 week follow-up AUD visit and second Vivitrol injection. Sewing Trimmer present for interview. Pt states that he had no issues with the first injection 4 weeks ago. Patient stated that his desire and urge to drink has diminished greatly over the past four weeks and that he rarely drinks at all now, 1 beer maybe once or twice a week. Pt notified the office that he has a new primary care provider in [place] that will be continuing his injections from this point forward. Pt reminded to call the office if circumstances change. Office Meds Vivitrol 380 mg intramuscular suspension,extended release Performing Provider: Karley Austin NP Performing Location: [facility] Administered by: Roopa Rojas RN on 05/23/23 14:33 Dose Route Admin Location Dispensed Lot Number Expiration Date [facility] Principal Developer 380 mg IM LG 380 mg [id number] 07/13/25 [id number] Eachbaby Comments: Pt tolerated injection well, denies concerns about previous injection. Educated on signs and symptoms of infection, encouraged to call [facility] with any questions or concerns, Pt verbalized understanding through live court interpreter. Coding Assessment & Plan Assessment & Plan Orders: Orders AMB Naltrexone Injection Patient Supplied Today F10.90 - Alcohol use, unspecified, uncomplicated
[2023-05-23 14:04] VITALS: BP 140/90; PULSE 69; O2SAT 97
== END 2023-05-23 15:09 | disposition home or self-care (01) ==
DX: F10.90 Alcohol use, unspecified, uncomplicated (principal)

== ENCOUNTER → 2023-05-23 13:53 | Outpatient (BNVA) | payer OTHER, SELFPAY | DX: F10.90 Alcohol use, unspecified, uncomplicated (principal) | CPT/HCPCS: 96372; J2315 ==

== ENCOUNTER 2024-12-12 12:58 | Emergency (ER) | payer OTHER, SELFPAY ==
--- NOTE | ~2024-12-12 | XR_ITS ---
CLINICAL HISTORY: pain 3 view left foot Comparison: None provided Findings: Bones intact. No dislocations. No significant loss of joint space, osteophytes, or erosions. No ankle effusion. No radiopaque foreign body. IMPRESSION: 1. No acute findings. This document has been electronically signed by: Indu Lindsey MD on 12/12/2024 14:18:49
[2024-12-12 13:11] VITALS: BP 179/90; PULSE 74; RESP 18; TEMP 36.2; O2SAT 97
--- NOTE | 2024-12-12 13:11 | ED.GENADULT ---
[facility] - General Adult General Chief complaint: Extremity Problem Stated complaint: l foot pain Time Seen by Provider: 12/12/24 14:44 Source: patient and binding folder machine Mode of arrival: ambulatory Limitations: language barrier History of Present Illness ED Provider: HPI narrative: 49-year-old male, presenting with atraumatic left midfoot pain no fevers or chills no skin changes. Related Data Home Medications ?Medication ?Instructions ?Recorded ?Confirmed cyanocobalamin (vitamin B-12) 1,000 mcg PO DAILY 02/25/23 02/25/23 1,000 mcg tablet ibuprofen 200 mg tablet (Advil) 400 mg PO Q6H PRN Pain (Scale 02/25/23 02/25/23 Score 1-3) vitamin A 3,000 mcg (10,000 unit) 3,000 mcg PO DAILY 02/25/23 02/25/23 capsule Previous Rx's ?Medication ?Instructions ?Recorded gemfibrozil 600 mg tablet 600 mg PO BIDAC #60 tabs 02/28/23 naltrexone 50 mg tablet 50 mg PO DAILY #30 tabs 02/28/23 naltrexone 50 mg tablet 50 mg PO DAILY #30 tabs 03/25/23 naltrexone microspheres 380 mg 380 mg IM Q4W #1 ea 03/29/23 intramuscular suspension,extended release (Vivitrol) methylprednisolone 4 mg tablets in 4 mg PO DAILY #21 ea 12/12/24 a dose pack (Medrol (David)) Allergies Allergy/AdvReac Type Severity Reaction Status Date / Time No Known Allergies Allergy Verified 12/12/24 13:12 Review of Systems Constitutional: Constitutional: Reports as per [facility] Social History Social History Housing: House Alcohol intake: current Alcohol intake frequency: 3 or more drinks per day Alcohol type: beer Patient Tobacco Use Status: Current someday Tobacco user Tobacco use type: Cigarette Advance Directives: No Advance Directives Information Provided: No service: No Physical Exam ED Vital Signs: Vital Signs - 24 hr 12/12/24 13:11 Temperature 97.2 F Pulse Rate 74 Respiratory Rate 18 Blood Pressure 179/90 H Pulse Oximetry 97 Oxygen Delivery Method Room Air BMI result Body Mass Index 30.0 Const Other: Left midfoot tenderness no subcutaneous emphysema, Achilles intact no tenderness along lateral or medial malleoli, no tenderness along the plantar fascia, no ankle edema Pain along FHL Course Course Course Narrative: CLEMENTINA, this is a rapid medical exam performed by Scott De La Fuente please refer to primary provider for complete H&P- 49-year-old male presents for evaluation of pain to his left foot. He reports waking up with the pain this morning, denies any specific injury. Plan for x-ray. There was no significant erythema, edema to left foot. He has minimal tenderness to the mid foot in the dorsal surface. Medical Decision Making Medical Decision Making [facility] Narrative: Based on physical examination this is likely flexor helix longus tendonitis, without infectious etiology and there is no evidence for fracture or anything to suspect midfoot injury, or gout or septic ankle, ice, steroids, return precautions Differential Diagnosis Differential Diagnoses: The differential diagnosis associated with the presentation includes (See above) Independent Interpretation I performed an independent interpretation of an: Plain X-Ray (No evidence for fractures, soft tissue swelling) Radiology Impression Discussion of test interpretation with radiology: I have reviewed the radiologist's reading. Discharge Plan Discharge Clinical Impression: Acute pain of left foot Patient Disposition: Home, Self-Care Instructions: Arthralgia (ED) Additional Instructions: Ice the area with a big bag of ice twice daily, continue steroids starting tomorrow, Tylenol 975 mg every 6 hours for additional pain control, if you develop redness going up your leg up to the ankle, spike fevers, if the current regimen that I provided is not getting better and your feeling worse come back to the ER for re-evaluation, otherwise follow up with the PCP Prescriptions: New methylprednisolone [Medrol (David)] 4 mg tablets,dose pack 4 mg PO DAILY Qty: 21 0RF Rx Instructions: Day 1: 24 mg on day 1 administered as 8 mg before breakfast, 4 mg after lunch, 4 mg after supper, and 8 mg at bedtime or 24 mg as a single dose or divided into 2 or 3 doses upon initiation. Day 2: 20 mg on day 2 administered as 4 mg before breakfast, 4 mg after lunch, 4 mg after supper, and 8 mg at bedtime. Day 3: 16 mg on day 3 administered as 4 mg before breakfast, 4 mg after lunch, 4 mg after supper, and 4 mg at bedtime. Day 4: 12 mg on day 4 administered as 4 mg before breakfast, 4 mg after lunch, and 4 mg at bedtime. Day 5: 8 mg on day 5 administered as 4 mg before breakfast and 4 mg at bedtime. Day 6: 4 mg on day 6 administered as 4 mg before breakfast. No Action naltrexone 50 mg tablet 50 mg PO DAILY Qty: 30 3RF Vivitrol 380 mg suspension,extended rel recon 380 mg IM Q4W Qty: 1 5RF cyanocobalamin (vitamin B-12) 1,000 mcg Tablet 1,000 mcg PO DAILY vitamin A 3,000 mcg (10,000 unit) Capsule 3,000 mcg PO DAILY ibuprofen [Advil] 200 mg Tablet 400 mg PO Q6H PRN (Reason: Pain (Scale Score 1-3)) gemfibrozil 600 mg Tablet 600 mg PO BIDAC Qty: 60 0RF naltrexone 50 mg tablet 50 mg PO DAILY Qty: 30 0RF Rx Instructions: take half tab daily for 3 days then increase to one tab daily Stand Alone Forms: Work/School Release Print Language: Honduran
--- OUTSIDE RECORDS SUMMARY | 2024-12-12 13:30 | XMS_ITS | Encounter Summary ---
Author Organization [facility] Address [address] [place] [address] Care Team Providers Care Tubing Tester Name Role Phone Unavailable Primary Care Provider Unavailabl e Encounter Details Date Type Department Care Team (Latest Contact Info) Description 06/30/2020 Abstract [facility] CONVERSIONS Dental, Provider, DDS Social History Tobacco Use Types Packs/Day Years Used Date Smoking Tobacco: Never Assessed Sex and Gender Information Value Date Recorded Sex Assigned at Male 02/12/2022 10:24 AM EDT Legal Sex Male 10:24 AM EDT Gender Identity Male 02/12/2022 10:24 AM EDT Sexual Orientation Straight 02/12/2022 10 :24 AM EDT documented as of this encounter Plan of Treatment Upcoming Encounters Date Type Department Care Team (Late st Contact Info) Description 06/03/2025 3:00 PM EST Office Visit [facility] ADULT DENTAL [address] [place] [address] Dee Pitts [address] [place] [address] documented as of this encounter Visit Diagnoses Not on filedocumented in this encounter
--- OUTSIDE RECORDS SUMMARY | 2024-12-12 13:30 | XMS_ITS | Clinical Summary ---
Author Organization [facility] Address [address] [address] Phone Care Team Providers Care Maintenance Millwright Name Role Phone RowlandShayna Primary Care Provider Unavailabl e Allergies No known active allergies Medications meclizine (ANTIVERT) 25 mg tablet Take 1 tablet (25 mg total) by mouth 3 (three) times a day as needed. 12 tablet 8 Active methylPREDNISol one (MEDROL DOSEPACK) 4 mg tablet follow package directions 21 tablet 3 Active Social History Tobacco Use Types Packs/Day Years Used Date Smoking Tobacco: Never Passive Smoke Exposure: Never Smokeless Tobacco: Never Tobacco Cessation:Counseling Given: Not Answered Alcohol Use Standard Drinks/Week Comments Yes 0 (1 standard drink = 0.6 oz pur e alcohol) Education Answer Date Recorded Are you interested in more education? Not on mark e 11/14/2022 Are you concerned about learning? Not on file 11/14/2022 No 11/14/2022 No 11/14/2022 Digital Access Answer Date Recorded No 11/14/2022 No 11/14/2022 Reliable internet access at home? Not on file 11/14/2022 Device with a working camera? Not on file Intimate Partner Violence Answer Date R ecorded Are you denied basic needs s uch as food, clothing, or medical care? No 11/14/2022 In the past 12 months have y ou been in a relationship with a person who hurts, threatens, or tries to control you? No 11/14/2022 Are you denied basic needs s uch as food, clothing, or medical care? No 11/14/2022 In the past 12 months have y ou been in a relationship with a person who hurts, threatens, or tries to control you? No 11/14/2022 Sex and Gender Information Value Date Recorded Sex Assigned at Male 11/14/2022 8:38 PM EDT Legal Sex Male 3:24 PM EST Gender Identity Male 11/14/2022 8:38 PM EDT Sexual Orientation Not on file Last Filed Vital Signs Vital Sign Reading Time Taken Comments Blood Pressure 156/89 11/14/2022 11:27 PM EDT Pulse 79 11/14/2022 11:27 PM EDT Temperature 36.6 C (97.9 F) 11/14/2022 11:27 PM EDT Respiratory Rate 16 11/14/2022 11:27 PM EDT Oxygen Saturation 98% 11/14/2022 11:27 PM EDT Inhaled Oxygen Concentration - - Weight 77.1 kg (170 lb) 11/14/2022 8:36 PM EDT Height 167.6 cm (5' 6 ) 11/14/2022 8:36 PM EDT Body Mass Index 27.44 11/14/2022 8:36 PM EDT Plan of Treatment Health Maintenance Due Date Last Done Comments Adult Td,Tdap Booster 1973 LIPID PANEL 1973 DEPRESSION SCREENING 1985 HEPATITIS C SCREENING 08/13/1991 HIV ONE-TIME SCREENING (18-6 5 YEARS) 08/13/1991 COLOGUARD 2018 COLONOSCOPY 2018 COLORECTAL CANCER SCREENING 2018 FIT TEST 2018 FOBT 2018 SIGMOIDOSCOPY 2018 VIRTUAL COLONOSCOPY 2018 SCREENING FOR DIABETES 05/14/2020 05/14/2017 PNEUMOCOCCAL VACCINES (50+ y ears) (1 of 1 - PCV) 08/13/2023 ZOSTER VACCINES (1 of 2) 08/13/2023 COVID-19 VACCINE ( - 2023-2 5 season) 2023 SMOKING STATUS SCREENING (On ce After 26 Yrs) Completed 11/14/2022 HEPATITIS A VACCINES Aged Out No long er eligible based on patient's age to complete this topic HIB VACCINES Aged Out No longer eligi ble based on patient's age to complete this topic MENINGOCOCCAL VACCINES (ACWY) Aged Out No longer eligible based on patient's age to complete this topic MENINGOCOCCAL VACCINES (B) Aged Out N o longer eligible based on patient's age to complete this topic Medical Devices Not on file Insurance [employer] [facility] CHO[facility] [employer] [facility] CHO[facility] [employer] [facility] [employer] [facility] [employer] [facility] [employer] CHOICE [facility] CHO[facility] Care Teams Maintenance Millwright Relationship Specialty Start Date End Date Shayna Rowland [address] [place] [id number] PCP - General 09/26/23 Additional Source Comments The information contained in this document represents components of the legal health record. It is not the complete legal health record.[facility]
--- OUTSIDE RECORDS SUMMARY | 2024-12-12 13:30 | XMS_ITS | Clinical Summary ---
Author Organization [facility] Address [address] [place] [address] Care Team Providers Care Amusement Equipment Operator Name Role Phone Unavailable Primary Care Provider Unavailabl e Allergies No known active allergies Medications amoxicillin-cla vulanate (Augmentin) 875-125 MG tablet Take 1 tablet by mouth 2 times daily for 7 days. 14 tablet 11/05/2024 5 ibuprofen 600 MG tablet Take 1 tablet (600 mg) by mouth 3 times daily for 7 days. 21 tablet 11/05/2024 5 acetaminophen (Tylenol) 500 MG tablet Take 1 tablet (500 mg) by mouth every 8 (eight) hours if needed for mild pain for up to 7 days. 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/2024 Missing teeth, acquired 11/26/2024 Acute gingival inflammation 08/01/2023 Dental calculus 08/01/2023 Tipped teeth 08/01/2023 Localized gingival recession 08/01/2023 Periodontal disease 12/20/2022 Encounters Date Type Department Care Team Description 11/26/2024 3:00 PM EDT Office Visit [facility] [address] [place] [address] Dee Pitts Localized gingival recession (Primary Dx); Acute gingival inflammation; Advanced periodontitis; Missing teeth, acquired; Dental calculus 11/10/2024 Telephone [facility] [address] [place] [address] Jose Sanchez DDS 11/05/2024 11:00 AM EDT Office Visit [facility] [address] [place] [address] Jennifer Be Periodontal disease (Primary Dx) from Last 3 Months Social History Tobacco Use Types Packs/Day Years Used Date Smoking Tobacco: Former Cigarettes Passive Smoke Exposure: Never Smokeless Tobacco: Never Tobacco Cessation:Counseling Given: Not Answered Alcohol Use Standard Drinks/Week Comments Defer 0 (1 standard drink = 0.6 oz pur e alcohol) Sex and Gender Information Value Date Recorded Sex Assigned at Male 02/12/2022 10:24 AM EDT Legal Sex Male 10:24 AM EDT Gender Identity Male 02/12/2022 10:24 AM EDT Sexual Orientation Straight 02/12/2022 10 :24 AM EDT Last Filed Vital Signs Vital Sign Reading Time Taken Comments Blood Pressure 126/74 11/26/2024 2:50 PM EDT Pulse 74 10/24/2023 9:08 AM EDT Temperature - - Respiratory Rate - - Oxygen Saturation - - Inhaled Oxygen Concentration - - Weight - - Height - - Body Mass Index - - Plan of Treatment Upcoming Encounters Date Type Department Care Team (Late st Contact Info) Description 06/03/2025 3:00 PM EST Office Visit [facility] [address] [place] [address] Hong, Dee [address] [place] [address] Health Maintenance Due Date Last Done Comments CT Colonography 1973 Colonoscopy 1973 Colorectal Cancer Screening 1973 Depression Screening 1973 FIT DNA/Cologuard 1973 FIT 1973 FOBT 1973 HIV Screening 1973 Lipid Panel 1973 SDOH Screening 1973 Sigmoidoscopy 1973 Disability Screening 1973 Alcohol/Substance Use Screening 1985 Family Planning (PISQ) 1988 Hepatitis C Screening 08/13/1991 Hepatitis B Vaccines (1 of 3 - 19+ 3-dose series) 1992 Pneumococcal Vaccine: 50+ Years (1 of 1 - PCV) 08/13/2023 Zoster Vaccines (1 of 2) 08/13/2023 COVID-19 Vaccine ( season) 2023 01/17/2022, 04/18/2021, 08/27/2020, Additional history exists Dental Oral Exam 02/01/2024 08/01/2023, , 06/30/2020, Additional history exists Dental X-Ray: Bitewings 09/24/2024 09/24/19 24, 09/05/2023, 01/31/2023, Additional history exists Influenza Vaccine (#1) 2024 , 04/17/2023, 03/24/2018, Additional history exists Dental Prophylaxis 05/30/2025 11/26/2024, 0 08/01/2023, 06/30/2020, Additional history exists Tobacco Screening 11/26/2025 11/26/2024 Dental X-Ray: Full Mouth 12/21/2025 023, 06/30/2020, 12/10/2012 DTaP/Tdap/Td Vaccines (3 - Td or Tdap) 04/17/2033 04/17/2023, 03/14/2012 RSV Patients and Patients Aged 60 years or older (1 - 1-dose 75+ series) 2048 HIB Vaccines Aged Out No longer eligi ble based on patient's age to complete this topic HPV Vaccines Aged Out No longer eligi ble based on patient's age to complete this topic Hepatitis A Vaccines Aged Out No long er eligible based on patient's age to complete this topic IPV Vaccines Aged Out No longer eligi ble based on patient's age to complete this topic Meningococcal B Vaccine Aged Out No l onger eligible based on patient's age to complete this topic Meningococcal Vaccine Aged Out No marvin ibeth eligible based on patient's age to complete this topic RSV under 20 months Aged Out No longe r eligible based on patient's age to complete this topic Rotavirus Vaccines Aged Out No longer eligible based on patient's age to complete this topic Procedures Procedure Name Priority Date/Time Associated Diagnosis Comments ORAL HYGIENE INSTRUCTIONS Routine 11/26/2024 3:00 PM EDT Localized gingival recession Acute gingival inflammation Advanced periodontitis Missing teeth, acquired Dental calculus PROPHYLAXIS - ADULT Routine 11/26/2024 3 :00 PM EDT Localized gingival recession Acute gingival inflammation Advanced periodontitis Dental calculus 14 PALLIATIVE (EMERGENCY) TREATMENT OF DENTAL PAIN - MINOR PROCEDURE Routine 11/05/2024 11:00 AM EDT INTRAORAL - PERIAPICAL FIRST RADIOGRAPHIC IMAGE Routine 11/05/2024 11:00 AM EDT CASE PRESENTATION, DETAILED AND EXTENSIVE TREATMENT PLANNING Routine 11/05/2024 11:00 AM EDT 14 EXTRACTION, ERUPTED TOOTH OR EXPOSED ROOT (ELEVATION/FORCEPS REMOVAL) Routine 11/05/2024 11:00 AM EDT Periodontal disease BITEWINGS - 2 RADIOGRAPHIC IMAGES Routine 09/24/2023 9:00 AM EDT Periodontal disease Dental calculus Acute gingival inflammation Localized gingival recession PERIODIC ORAL EVALUATION - ESTABLISHED PATIENT Routine 08/01/2023 8:00 AM EDT PANORAMIC RADIOGRAPHIC IMAGE Routine 12/20/2022 1:00 PM EDT from Last 3 Months or Most Recently Relevant to Health Maintenance
[2024-12-12 15:33] VITALS: BP 179/90; PULSE 74; RESP 18; TEMP 36.2; O2SAT 97
== END 2024-12-12 15:34 | disposition home or self-care (01) ==
PROVIDERS: Emergency Provider Emergency Medicine
DX: M79.672 Pain in left foot (principal); F17.210 Nicotine dependence, cigarettes, uncomplicated
CPT/HCPCS: 73630; 96372; 99283; 99284; J1885; J8540

== ENCOUNTER → 2024-12-12 13:11 | Outpatient (BNV) | payer OTHER, SELFPAY | PROVIDERS: Emergency Provider Emergency Medicine; Visit Provider Radiology Diagnostic Radiology | DX: M79.672 Pain in left foot (principal) | CPT/HCPCS: 73630 ==